=== PATIENT | female | born 1940 | race Caucasian/White ===

== ENCOUNTER → 2018-02-12 10:52 | Outpatient (CLI) | payer MEDICARE, SELFPAY ==
--- NOTE | 2018-03-05 11:22 | ZIOP_ITS ---
DATE OF DICTATION: March 05, [address]: 13 days, 3 hours - February 122017 Baseline rhythm sinus. Rare single PAC. Seven bursts of SVT, longest 14-beat duration, fastest 176 bpm Rare single PVC, rare couplet. No VT. No bradycardia or block. Eight triggered events all during sinus rhythm +/- single PAC, 75-98 bpm. Ten symptomatic episodes all during sinus rhythm +/- single PAC, 66-99 bpm. Symptoms of skipped irre gular beats, dizziness, fluttering, racing, anxious, very hungry, weak, sweating, all described. Average heart rate sinus 75 bpm, range 47-112 bpm.
== END ==
PROVIDERS: PCP Emergency Medicine; Visit Provider Emergency Medicine
DX: R00.2 Palpitations (principal)
CPT/HCPCS: 0296T; 93225

== ENCOUNTER → 2018-03-05 07:36 | Outpatient (CLI) | payer MEDICARE, SELFPAY | PROVIDERS: PCP Emergency Medicine; Visit Provider Internal Medicine Interventional Cardiology | DX: R00.2 Palpitations (principal); I47.1 Supraventricular tachycardia | CPT/HCPCS: 0298T ==

== ENCOUNTER 2018-05-24 10:03 | Outpatient (CLI) | payer MEDICARE, SELFPAY ==
[2018-05-24 11:27] LABS: HCT 38.2 % (36.0-46.0); HGB 12.4 g/dL (12.0-15.5); Mean Corp. HGB Concentration 32.5 g/dL (32.0-36.0); Mean Corpuscular Hemoglobin 29.5 pg (27.0-33.0); Mean Corpuscular Volume 90.7 fL (80-95); Platelet Count 258 x1000/uL (130-400); RBC 4.21 m/cumm (4.00-5.20); RBC Distribution Width 12.9 % (11.7-14.6); White Blood Cell Count 8.61 k/cumm (4.4-10.8)
[2018-05-24 12:31] LABS: ALT 27 U/L (12-78); AST 17 U/L (15-37); Albumin 3.5 g/dL (3.4-5.0); Alkaline Phosphatase 100 U/L (46-116); Anion Gap 5.7 mmol/L (3-11); BUN 15 mg/dL (7-18); Bilirubin, Total 0.4 mg/dL (0.2-1.0); CO2 31.3 mmol/L (21.0-32.0); CREATININE 0.89 mg/dL (0.55-1.02); Calcium 9.1 mg/dL (8.5-10.1); Chloride 106 mmol/L (98-107); Ferritin 146 ng/mL (8-388); Glucose 86 mg/dL (70-100); Potassium 4.5 mmol/L (3.5-5.1); Sodium 143 mmol/L (136-145); TSH 1.69 uIU/mL (0.358-3.74); Total Protein 6.8 g/dL (6.4-8.2)
[2018-05-25 13:01] LABS: Albumin 57.3 % (55.8-66.1); Total Protein 6.5 g/dl (6.3-8.2)
== END 2018-05-24 10:23 ==
PROVIDERS: PCP Emergency Medicine; Visit Provider Emergency Medicine
DX: I10 Essential (primary) hypertension (principal); F41.9 Anxiety disorder, unspecified; D12.6 Benign neoplasm of colon, unspecified; R53.83 Other fatigue; G62.9 Polyneuropathy, unspecified
CPT/HCPCS: 36415; 80053; 85027; 82728; 84165; 84443

== ENCOUNTER 2018-06-15 01:37 | Outpatient (CLI) | payer MEDICARE, SELFPAY ==
--- NOTE | 2018-06-15 08:57 | DI.MRI_ITS ---
SYMPTOMS/DIAGNOSIS: HEADACHE AND HEARING LOSS, R51 MRI OF THE BRAIN: Routine noncontrast examination. Comparison is 08/07/09. The ventricles and sulci are consistent with the patient's age. There are areas of T2 hyperintensity on the FLAIR and T2 images in the white matter, most consistent with small vessel ischemic disease. The diffusion weighted images show no evidence of an acute infarct. No intracranial hemorrhage is present. The ventricles are intact. The basilar cisterns are patent. There is again seen an empty sella. A normal flow void is seen in the [place]. There is a opacification of the mastoid air cells bilaterally. The remaining visualized paranasal sinuses show a mucus retention cyst or polyp in the left maxillary sinus. IMPRESSION: 1. Age-appropriate cerebral atrophy and small vessel ischemic disease. 2. Bilateral mastoiditis.
== END 2018-06-15 01:57 ==
PROVIDERS: PCP Emergency Medicine; Visit Provider Emergency Medicine
DX: R51 Headache (principal); H91.8X9 Other specified hearing loss, unspecified ear; G31.9 Degenerative disease of nervous system, unspecified; H70.93 Unspecified mastoiditis, bilateral
CPT/HCPCS: 70551

== ENCOUNTER 2018-06-25 02:39 | Outpatient (CLI) | payer MEDICARE, SELFPAY ==
--- NOTE | 2018-07-16 10:55 | ZIOP_ITS ---
ZIO PATCH MONITOR INTERPRETATION DATE OF DICTATION July 16, [address] 13 days, 3 hours, June 25-2017. INTERPRETATION Baseline rhythm sinus. Rare single PAC. SVT noted 12 times, fastest 154 beats per minute, longest 6 beat duration. Rare single PVC. No VT. No bradycardia/block. 5 triggered events occurring during sinus rhythm +/- single PAC 66-98 beats per minute. SYMPTOMS 6 symptomatic episodes. Weirdness, a feeling it kept up, felt I could faint, anxious, blurry vision, dizziness, lightheadedness, waves strange feeling all described during sinus rhythm +/- single PAC 66-95 beats per minute. Average heart rate sinus 72 beats per minute, range 47-104 beats per minute. Jonathon Doherty M.D. JAMIL/drake T - 07/16/2018
== END 2018-06-25 02:59 ==
PROVIDERS: PCP Emergency Medicine; Visit Provider Emergency Medicine
DX: R00.2 Palpitations (principal); I47.1 Supraventricular tachycardia; I49.1 Atrial premature depolarization
CPT/HCPCS: 93225

== ENCOUNTER 2018-07-16 10:21 | Outpatient (CLI) | payer MEDICARE, SELFPAY | END 2018-07-16 10:41 | PROVIDERS: PCP Emergency Medicine; Referring Provider Emergency Medicine; Visit Provider Internal Medicine Interventional Cardiology | DX: R00.2 Palpitations (principal); I47.1 Supraventricular tachycardia; I49.1 Atrial premature depolarization | CPT/HCPCS: 0298T ==

== ENCOUNTER 2018-08-30 14:52 | Outpatient (CLI) | payer MEDICARE, SELFPAY ==
[2018-08-30 15:38] LABS: Abs Immature Grans 0.01 k/cumm (0.0-0.09); Absolute Basophil Count 0.01 k/cumm (0.0-0.2); Absolute Eosinophil Count 0.04 k/cumm (0.0-0.7); Absolute Lymphocyte Count 2.44 k/cumm (1.2-3.4); Absolute Monocyte Count 0.47 k/cumm (0.11-0.7); Absolute Neutrophil Count 4.56 k/cumm (1.2-6.7); Basophils % 0.1; Eosinophils % 0.5; HCT 38.7 % (36.0-46.0); HGB 12.8 g/dL (12.0-15.5); Immature Grans % 0.1; Lymphocytes % 32.4; Mean Corp. HGB Concentration 33.1 g/dL (32.0-36.0); Mean Corpuscular Hemoglobin 29.4 pg (27.0-33.0); Mean Corpuscular Volume 88.8 fL (80-95); Mean Platelet Volume 10.6 fL (8.0-11.0); Monocytes % 6.2; Neutrophils % 60.7; Platelet Count 224 x1000/uL (130-400); RBC 4.36 m/cumm (4.00-5.20); RBC Distribution Width 13.3 % (11.7-14.6); White Blood Cell Count 7.53 k/cumm (4.4-10.8)
[2018-08-30 16:41] LABS: ESR 11 MM/HR (0-30)
[2018-08-30 17:09] LABS: ALT 25 U/L (12-78); AST 19 U/L (15-37); Albumin 3.8 g/dL (3.4-5.0); Alkaline Phosphatase 90 U/L (46-116); Anion Gap 7.8 mmol/L (3-11); BUN 16 mg/dL (7-18); Bilirubin, Total 0.5 mg/dL (0.2-1.0); CO2 30.2 mmol/L (21.0-32.0); CREATININE 0.87 mg/dL (0.55-1.02); Calcium 9.1 mg/dL (8.5-10.1); Chloride 106 mmol/L (98-107); Glucose 96 mg/dL (70-100); Potassium 4.2 mmol/L (3.5-5.1); Sodium 144 mmol/L (136-145); TSH 1.65 uIU/mL (0.358-3.74); Total Protein 7.1 g/dL (6.4-8.2)
[2018-08-31 13:53] LABS: Albumin 61.8 % (55.8-66.1); Total Protein 6.7 g/dl (6.3-8.2)
== END 2018-08-30 15:12 ==
PROVIDERS: PCP Emergency Medicine; Visit Provider Emergency Medicine
DX: R53.83 Other fatigue (principal); R07.1 Chest pain on breathing; E03.9 Hypothyroidism, unspecified
CPT/HCPCS: 36415; 80053; 85652; 84165; 84443; 85025

== ENCOUNTER → 2018-11-12 12:30 | Outpatient (BNVA) | payer MEDICARE, SELFPAY | PROVIDERS: PCP Emergency Medicine; Visit Provider Nurse Practitioner Adult Health | DX: H53.9 Unspecified visual disturbance (principal); R68.89 Other general symptoms and signs; I10 Essential (primary) hypertension | CPT/HCPCS: 99204; 99214 ==

== ENCOUNTER 2018-12-16 21:25 | Emergency (ER) | payer MEDICARE, SELFPAY ==
[2018-12-16 21:29] VITALS: BP 131/73; PULSE 72; RESP 18; TEMP 37.1; O2SAT 98
--- NOTE | 2018-12-16 21:44 | ED.GENADUL_ITS ---
Discharge Plan Disposition Patient Disposition: HOME Condition: Good Discharge Details Chief Complaint: GenMedical Clinical Impression: Excess ear wax Primary Care Provider: Jaylen Wakefield ED Provider: Abe Gibson Home Meds and New Rx's Prescriptions: No Action mirtazapine 15 mg tablet 7.5 mg PO QHS RF: 0 metoprolol succinate 25 mg tablet extended release 24 hr 25 mg PO DAILY Qty: 90 RF: 3 lorazepam 0.5 mg tablet 0.5 mg PO PRN RF: 0 gabapentin 300 mg capsule 600 mg PO DAILY RF: 0 calcium carb and citrate-vitD3 1 EACH tablet extended release 1 ea PO DAILY RF: 0 losartan 100 mg tablet 100 mg PO DAILY Qty: 90 RF: 3 amlodipine 5 mg tablet 5 mg PO DAILY Qty: 90 RF: 4 Discharge Instructions Instructions: Cerumen Impaction (ED) Additional Instructions: If you notice any worsening of your symptoms, or any new symptoms such as ear pain, changes and he vomiting, diarrhea, fever, chills, shortness of breath, sophie st pain, numbness, weakness, or fainting , please return immediately to the emergency department for reevaluation. Please follow up with your primary care provider as soon as possible for reassessment and reevaluation. As always, it was a pleasure participating in your medical care today. Referrals: Jaylen Wakefield, DO [Primary Care Provider] - Medical Decision Making This is a pleasant 78-year-old female who presents for evaluation of suspected foreign body or insect in the right ear. Roughly an hour ago she noted that she thought something felt funny in her right ear. They came for further evaluation. Exam demonstrates a small amount of wax which was easily removed, after this there was notable absence of any insect or foreign body, no evidence of a tick. After the wax was removed the patient felt much better. I have extensively reviewed the treatment plan and discharge instructions with the patient and their family. I have addressed all patient concerns at this time. The patient and family was made aware of what symptoms to monitor for that would warrant a return to the emergency department. Discussed the plan with the patient and family, they demonstrate verbal understanding and agreement with our assessment and plan at this time. HPI General Date/Time Provider Initiated Documentation: 12/16/18 21:31 . HPI Narrative: This is a pleasant 78-year-old female who presents for evaluation of suspected foreign body in right ear. She states that earlier today she thought that there was something crawling around in her ear, they thought it might be a tick. They were unable to see anything on their exam and so they came in for further evaluation. She denies any pain, drainage, or other complaints. No hearing changes. Related Data Home Medications Medication Instructions Recorded Confirmed calcium carb and citrate-vitD3 1 ea PO DAILY 12/10/14 09/20/18 losartan 100 mg tablet 100 mg PO DAILY #90 tab-cap 07/19/18 09/20/18 metoprolol succinate ER 25 mg 25 mg PO DAILY #90 tab 08/01/18 09/20/18 tablet,extended release 24 hr amlodipine 5 mg tablet 5 mg PO DAILY #90 tab-cap 09/11/18 09/20/18 gabapentin 300 mg capsule 600 mg PO DAILY cap 11/12/18 11/12/18 lorazepam 0.5 mg tablet 0.5 mg PO PRN tab 11/12/18 11/12/18 mirtazapine 15 mg tablet 7.5 mg PO QHS tab 11/12/18 11/12/18 Previous Rx's Medication Instructions Recorded losartan 100 mg tablet 100 mg PO DAILY #90 tab-cap 07/19/18 metoprolol succinate ER 25 mg 25 mg PO DAILY #90 tab 08/01/18 tablet,extended release 24 hr amlodipine 5 mg tablet 5 mg PO DAILY #90 tab-cap 09/11/18 Allergies Allergy/AdvReac Type Severity Reaction Status Date / Time sertraline AdvReac Intermediate anxiety Verified 11/12/18 12:48 General Stated Complaint: GenMedical ARIK: 4 Review of Systems Review of Systems All systems reviewed & are unremarkable except as noted in HPI and below PFSH Social History Smoking/Tobacco Use Status: Never Alcohol Intake: current Alcohol Intake frequency: 0-2 drinks per day Drug use: Never Household members: other Details: 2 current occupation: Retired teacher What type of physical activity do you participate in: none Do you feel safe in your relationship?: Yes Exam Narrative Exam Narrative: 1.Const: Well-nourished, Well-developed, appearing stated age 2.Eyes: PERRL, no conjunctival injection, and symmetrical lids. 3.ENT: Atraumatic external nose and ears. Moist MM. Neck: Symmetric, trachea midline, No thyromegaly. Left ear canal and tympanic membrane are normal. Right ear canal demonstrates a small amount of wax which was removed without difficulty, no evidence of otitis media, foreign body, or arthropod. 4.CVS: +S1/S2, No murmurs or gallops. Peripheral pulses 2+ and equal in all extremities. Brisk capillary refill in all extremities. 5.RESP: Unlabored respiratory effort. Clear to auscultation bilaterally. No wheezes rales or rhonchi 6.GI: Soft, Nontender/Nondistended, No hepatosplenomegaly. No guarding or rebound. 7.MSK: Normocephalic/Atraumatic, Extremities w/o deformity or ttp No cyanosis or clubbing, Normal movement of all extremities 8.Skin: Warm, Dry. No rashes or lesions. 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 Sensation grossly intact, no focal neurologic deficits. 10.Psych: (AAO) x3. Appropriate mood and affect Course Vital Signs Temperature 37.1 C 12/16/18 21:29 Pulse 72 12/16/18 21:29 Respiratory Rate 18 12/16/18 21:29 Blood Pressure 131/73 12/16/18 21:29 Pulse Oximetry 98 12/16/18 21:29 Temperature 37.1 C 12/16/18 21:29 Temperature Source Tympanic 12/16/18 21:29 Pulse 72 12/16/18 21:29 Respiratory Rate 18 12/16/18 21:29 Blood Pressure 131/73 12/16/18 21:29 Blood Pressure Position Sitting 12/16/18 21:29 Pulse Oximetry 98 12/16/18 21:29 Oxygen Delivery Method Room Air 12/16/18 21:29 Oxygen Flow Rate 0 12/16/18 21:29 Pain Level 0 12/16/18 21:29
[2018-12-16 21:54] VITALS: BP 131/73; PULSE 72; RESP 18; O2SAT 98
== END 2018-12-16 21:52 | disposition home or self-care (01) ==
PROVIDERS: Emergency Provider Student in an Organized Health Care Education/Training Program; PCP Emergency Medicine
DX: H61.891 Other specified disorders of right external ear (principal); I10 Essential (primary) hypertension
CPT/HCPCS: 99282

== ENCOUNTER 2019-06-22 10:44 | Emergency (ER) | payer MEDICARE, SELFPAY ==
[2019-06-22 10:48] VITALS: BP 142/90; PULSE 102; RESP 18; TEMP 36.7; O2SAT 98
--- NOTE | 2019-06-22 11:21 | W.ED.GENAD ---
Discharge Plan Disposition Patient Disposition: HOME Condition: Stable Discharge Details Chief Complaint: RashLesion Clinical Impression: Shingles Primary Care Provider: Jaylen Wakefield ED Provider: Leanne De La Rosa Home Meds and New Rx's Prescriptions: New valacyclovir 1 gram tablet 1,000 mg PO TID 7 Days Qty: 21 RF: 0 Continued mirtazapine 15 mg tablet 7.5 mg PO QHS RF: 0 metoprolol succinate 25 mg tablet extended release 24 hr 25 mg PO DAILY Qty: 90 RF: 3 desipramine 10 mg tablet 10 mg PO QHS RF: 0 lorazepam 0.5 mg tablet 0.5 mg PO PRN RF: 0 gabapentin 300 mg capsule 600 mg PO DAILY RF: 0 calcium carb and citrate-vitD3 1 EACH tablet extended release 1 ea PO DAILY RF: 0 losartan 100 mg tablet 100 mg PO DAILY Qty: 90 RF: 3 amlodipine 5 mg tablet 5 mg PO DAILY Qty: 90 RF: 4 Discharge Instructions Instructions: Shingles (ED) Additional Instructions: Take the antivirals until finished. Avoid contact with pediatric patients who are either unvaccinated or under 12 months of age. Call your primary care doctor on Monday morning to schedule a follow-up appointment for reevaluation. Return to the emergency department if you develop any worsening or new concerning symptoms. Discharge Data Discharge Physician: Leanne De La Rosa Medical Decision Making 78-year-old female presents with pressure-like tingling right-sided facial rash since yesterday. Symptoms have worsened since yesterday with progression of rash. No known fever or difficulty swallowing. There are scattered erythematous mildly tender papules and vesicles in clusters on right preauricular region, along mandible and right anterior chin. Appear consistent with shingles. No obvious otitis media. PERRLA. EOMI. No complaint of blurry vision or hearing loss. She does have a history of chronic right tinnitus but states this is slightly worse than baseline. We will treat with antivirals. She was advised that this is contagious. Patient advised to avoid contact with pediatric patients under 12 months of age or unvaccinated. She is advised that I most likely suspect this is shingles but to follow-up with her primary care doctor for reevaluation. Usual and customary return precautions given prior to discharge. HPI General Date/Time Provider Initiated Documentation: 06/22/19 10:50. Related Data Home Medications Medication Instructions Recorded Confirmed calcium carb and citrate-vitD3 1 ea PO DAILY 12/10/14 06/22/19 losartan 100 mg tablet 100 mg PO DAILY #90 tab-cap 07/19/18 06/22/19 metoprolol succinate 25 mg 25 mg PO DAILY #90 tab 08/01/18 06/22/19 tablet,extended release 24 hr amlodipine 5 mg tablet 5 mg PO DAILY #90 tab-cap 09/11/18 06/22/19 gabapentin 300 mg capsule 600 mg PO DAILY cap 11/12/18 06/22/19 lorazepam 0.5 mg tablet 0.5 mg PO PRN tab 11/12/18 04/10/19 mirtazapine 15 mg tablet 7.5 mg PO QHS tab 11/12/18 06/22/19 desipramine 10 mg tablet 10 mg PO QHS 06/11/19 06/22/19 valacyclovir 1,000 mg PO TID 7 Days #21 tab 06/22/19 Previous Rx's Medication Instructions Recorded losartan 100 mg tablet 100 mg PO DAILY #90 tab-cap 07/19/18 metoprolol succinate 25 mg 25 mg PO DAILY #90 tab 08/01/18 tablet,extended release 24 hr amlodipine 5 mg tablet 5 mg PO DAILY #90 tab-cap 09/11/18 valacyclovir 1,000 mg PO TID 7 Days #21 tab 06/22/19 Allergies Allergy/AdvReac Type Severity Reaction Status Date / Time sertraline AdvReac Intermediate anxiety Verified 06/22/19 10:52 General Stated Complaint: RashLesion ARIK: 4 Review of Systems All systems reviewed & are unremarkable except as noted in HPI and below Constitutional Constitutional: Reports as per HPI, Denies chills and Denies fever(s) Eyes Eyes: Denies blurry vision ENT Ears, Nose, Mouth, and Throat: Denies dizziness, Denies sore throat and Denies throat swelling Cardiovascular Cardiovascular: Denies chest pain and Denies dyspnea Respiratory Respiratory: Denies cough and Denies dyspnea Gastrointestinal Gastrointestinal: Denies abdominal pain, Denies diarrhea and Denies vomiting Genitourinary Genitourinary: Denies hematuria and Denies dysuria Musculoskeletal Musculoskeletal: Denies back pain and Denies numbness Integumentary/Breasts Skin/Breast: Reports lesions and Reports rash Neurologic Neurologic: Denies dizziness, Denies focal weakness and Denies numbness Allergic/Immunologic Allergic/Immunologic: Denies throat swelling [facility] Medical History Anxiety Diarrhea Endometrial cancer GERD (gastroesophageal reflux disease) Hx of colonic polyps Hyperlipidemia Hypertension Lightheaded (Acute) Migraine Osteopenia Palpitations Sciatica Spinal stenosis of lumbar region Tinnitus Surgical History Biopsy of breast Colonoscopy - IV Sedation 2007- Tubular adenoma 2012- normal EGD - IV Sedation (07/27/16) Hysterectomy, Laproscopic (~08/2013) for adenoca of uterus Family History Mother Essential hypertension Father Heart disease Brother Heart disease Grandfather No problems noted. Grandfather Heart disease Grandmother No problems noted. Grandmother No problems noted. Social History Smoking/Tobacco Use Status: Never Alcohol Intake: current Alcohol Intake frequency: 0-2 drinks per day Drug use: Never Household members: other Details: 2 current occupation: Retired teacher What type of physical activity do you participate in: none Do you feel safe at home: Yes Do you feel safe in your relationship?: Yes Exam Const General: cooperative, healthy appearing and no acute distress HENFL Head: normal to inspection Head images: 1. Scattered mildly tender, erythematous papules and vesicles in clusters noted right preauricular region and along right mandible and right anterior chin. No evidence of abscess or bleeding. Ears: hearing grossly normal bilaterally and other (Some tenderness with introduction of otoscope into right ear canal. ) General nose exam: external nose normal Mouth: other (1 small tiny pinpoint tender flesh-colored papule inner R lower lip) Throat: posterior oropharynx normal Eyes General: appearance normal, both eyes and all related structures Periorbital: periorbital findings normal Eyelids: eyelids normal Conjunctivae: conjunctivae normal Pupils: PERRL EOM: EOM intact bilaterally Neck Neck: normal visual inspection, full ROM, no lymphadenopathy, no meningeal signs, trachea midline and supple Resp Effort & Inspection: normal respiratory effort and able to speak in complete sentences Cardio Rate: regular rate Neuro General: alert, awake and oriented x3 Motor: muscle tone normal throughout Extrem General: normal to inspection and full ROM Psych Appearance: grossly normal Affect: normal affect Course Vital Signs Vital signs: Vital Signs Temperature 98.1 F 06/22/19 10:48 Pulse 102 H 06/22/19 10:48 Respiratory Rate 18 06/22/19 10:48 Blood Pressure 142/90 H 06/22/19 10:48 Pulse Oximetry 98 06/22/19 10:48 Temperature 98.1 F 06/22/19 10:48 Temperature Source Skin 06/22/19 10:48 Pulse 102 H 06/22/19 10:48 Respiratory Rate 18 06/22/19 10:48 Respiratory Effort 06/22/19 10:54 Blood Pressure 142/90 H 06/22/19 10:48 Blood Pressure Position Sitting 06/22/19 10:48 Pulse Oximetry 98 06/22/19 10:48 Oxygen Delivery Method Room Air 06/22/19 10:48 Oxygen Flow Rate 0 06/22/19 10:48 Pain Level 0 06/22/19 10:48
== END 2019-06-22 11:32 | disposition home or self-care (01) ==
PROVIDERS: Emergency Provider Physician Assistant; PCP Emergency Medicine
DX: B02.9 Zoster without complications (principal); I10 Essential (primary) hypertension
CPT/HCPCS: 99283

== ENCOUNTER 2020-02-10 12:27 | Outpatient (REF) | payer MEDICARE, SELFPAY ==
[2020-02-12 22:21] LABS: Metanephrines, U 63 mcg/24 h; Normetanephrine, U 142 mcg/24 h; Total Metanephrines, U 205 mcg/24 h; Urine Volume 1575 mL
[2020-02-13 11:04] LABS: Urine Volume 1575 mL
[2020-02-13 17:59] LABS: Urine Volume 1575 mL
== END 2020-02-10 12:47 ==
LOC: LBN 12:27
PROVIDERS: PCP Emergency Medicine; Visit Provider Psychiatry & Neurology Psychiatry
DX: F41.8 Other specified anxiety disorders (principal)
CPT/HCPCS: 81050; 82384; 83835; 84585

== ENCOUNTER 2020-05-28 15:58 | Emergency (ER) | payer MEDICARE, SELFPAY ==
[2020-05-28 16:06] VITALS: BP 133/83; PULSE 87; RESP 16; TEMP 36.7; O2SAT 98
--- NOTE | 2020-05-28 16:15 | DI.RAD_ITS ---
EXAM: XR CHEST 2V PA LATERAL CLINICAL HISTORY: sensation of fb esophagus TECHNIQUE: 2D digital imaging was performed. COMPARISON: CR CHEST 2 VIEWS PA,LAT from 09/06/2017 FINDINGS: MEDIASTINUM: There again seen calcified mediastinal lymph nodes. HEART: Normal. PULMONARY VASCULATURE: Normal. LUNGS: Clear. PLEURAL SPACE: No pleural effusion or pneumothorax. BONE:Within normal limits for the patient's age. OTHER FINDINGS:No radiopaque foreign body is seen in the region of the esophagus. IMPRESSION: No acute pulmonary findings. No radiopaque foreign body in the region of the esophagus. If further i maging is warranted, endoscopy should be considered. DATA REPOSITORY: RADIATION DOSE DELIVERED:
[2020-05-28] MEDS: Mylanta Suspension 30 ML CUP PO (16:31)
--- NOTE | 2020-05-28 16:34 | ED.GENADUL_ITS ---
Discharge Plan Disposition Patient Disposition: HOME Condition: Stable Discharge Details Clinical Impression: Foreign body sensation in throat Primary Care Provider: Jaylen Wakefield ED Provider: Jamarcus Gao Home Meds and New Rx's Prescriptions: New omeprazole 40 mg capsule,delayed release(DR/EC) 40 mg PO DAILY Qty: 30 RF: 0 Continued mirtazapine 15 mg tablet 7.5 mg PO QHS RF: 0 lorazepam 0.5 mg tablet 0.5 mg PO PRN RF: 0 Shingrix (PF) 50 mcg/0.5 mL suspension for reconstitution 0.5 ml IM ONCE Qty: 1 RF: 0 sertraline 25 mg tablet 12.5 mg PO DAILY RF: 0 gabapentin 300 mg capsule 600 mg PO BID Qty: 90 RF: 3 losartan 100 mg tablet 100 mg PO DAILY Qty: 90 RF: 3 metoprolol succinate 25 mg tablet extended release 24 hr 25 mg PO DAILY Qty: 90 RF: 3 amlodipine 5 mg tablet 5 mg PO DAILY Qty: 90 RF: 4 Discharge Instructions Instructions: Esophageal Foreign Body (ED) Additional Instructions: Please follow-up with general surgery for an upper endoscopy. Please contact your primary care physician to arrange follow-up. Return to the ER for any worsening or new concerning symptoms. Referrals: [facility] [Provider Group] Jaylen Wakefield DO [Primary Care Provider] - Radha Avila DO [OSTEOPATHIC DOCTOR] - Discharge Data Discharge Date/Time-TO BE ENTERED AT DEPARTURE: 05/28/20 17:52 Medical Decision Making [id number]??79-year-old female with history of GERD here after having a sensation of foreign body in her throat/chest while she was attempting to swallow a tuna fish. Symptoms were severe and lasted approximately 45 minutes. Now resolved. Patient did experience an odd sensation of bubbles in her chest during the episode. I will obtain a screening chest x-ray. Pepcid to be given for potential reflux. -- cxr interpreted by radiology - negative. Patient reassessed and remains asymptomatic. Plan to start PPI and have patient follow-up for likely endoscopy. Usual and customary discharge instructions reviewed with patient. HPI General Mode of arrival: ambulatory . Date/Time Provider Initiated Documentation: 05/28/20 16:15 . Limitations to Documentation: no limitations . Information obtained by: patient . HPI Narrative: 79-year-old female presents with chief complaint of sensation of foreign body in her throat. Patient notes symptoms started just prior to arrival about an hour ago when she was eating a tuna fish sandwich. She notes she felt as though a piece of food got lodged in her throat. She describes having a sensation of bubbles of air in her throat. She states she could not swallow. Discomfort was severe with no modifiers. She attempted to vomit and could not. She has no associated other chest discomfort or shortness of breath. Symptoms have now resolved just prior to arrival. She is now asymptomatic. Related Data Home Medications Medication Instructions Recorded Confirmed lorazepam 0.5 mg tablet 0.5 mg PO PRN tab 11/12/18 05/28/20 mirtazapine 15 mg tablet 7.5 mg PO QHS tab 11/12/18 05/28/20 varicella-zoster glycoE [id number] 0.5 ml IM ONCE #1 each 06/24/19 05/28/20 adj(PF) 50 mcg/0.5 mL IM susp, kit gabapentin 300 mg capsule 600 mg PO BID #90 cap 07/09/19 05/28/20 losartan 100 mg tablet 100 mg PO DAILY #90 tab-cap 07/30/19 05/28/20 metoprolol succinate 25 mg 25 mg PO DAILY #90 tab 07/30/19 05/28/20 tablet,extended release 24 hr sertraline 25 mg tablet 12.5 mg PO DAILY tab 12/06/19 05/28/20 amlodipine 5 mg tablet 5 mg PO DAILY #90 tab-cap 12/10/19 05/28/20 omeprazole 40 mg PO DAILY #30 cap 05/28/20 Previous Rx's Medication Instructions Recorded varicella-zoster glycoE [id number] 0.5 ml IM ONCE #1 each 06/24/19 adj(PF) 50 mcg/0.5 mL IM susp, kit gabapentin 300 mg capsule 600 mg PO BID #90 cap 07/09/19 losartan 100 mg tablet 100 mg PO DAILY #90 tab-cap 07/30/19 metoprolol succinate 25 mg 25 mg PO DAILY #90 tab 07/30/19 tablet,extended release 24 hr amlodipine 5 mg tablet 5 mg PO DAILY #90 tab-cap 12/10/19 omeprazole 40 mg PO DAILY #30 cap 05/28/20 Allergies Allergy/AdvReac Type Severity Reaction Status Date / Time sertraline AdvReac Intermediate anxiety Verified 05/28/20 16:10 General Stated Complaint: ThroatFB ARIK: 2 Review of Systems All systems reviewed & are unremarkable except as noted in HPI and below Constitutional Constitutional: Denies fever(s) Cardiovascular Cardiovascular: Denies chest pain Gastrointestinal Gastrointestinal: Reports as per HPI and Denies nausea PFSH Medical History (Updated 05/28/20 @ 16:39 by Jamarcus Gao MD) Anxiety Diarrhea Endometrial cancer GERD (gastroesophageal reflux disease) Hx of colonic polyps Hyperlipidemia Hypertension Lightheaded Migraine Osteopenia Palpitations Sciatica Spinal stenosis of lumbar region Tick bite Tinnitus Surgical History Biopsy of breast Colonoscopy - IV Sedation 2007- Tubular adenoma 2012- normal EGD - IV Sedation (07/27/16) Hysterectomy, Laproscopic (~08/2013) for adenoca of uterus Family History Mother Essential hypertension Father Heart disease Brother Heart disease Grandfather No problems noted. Grandfather Heart disease Grandmother No problems noted. Grandmother No problems noted. Social History Smoking/Tobacco Use Status: Never Smoking risk assessment performed?: Yes Alcohol Intake: current Alcohol Intake frequency: 0-2 drinks per day Drug use: Never Household members: other Details: 2 current occupation: Retired teacher What type of physical activity do you participate in: none Do you feel safe at home: Yes Do you feel safe in your relationship?: Yes Exam Const General: cooperative and no acute distress HENMT Mouth: moist mucous membranes Throat: posterior oropharynx normal Eyes Conjunctivae: normal conjunctivae Sclera: normal sclerae Neck Neck: trachea midline and supple Resp Auscultation: clear to auscultation bilaterally, no rales, no rhonchi and no wheezes Cardio Rate: regular rate and not tachycardic Rhythm: regular rhythm GI Palpation: soft, not firm, no guarding, no masses, not rigid and nontender Skin General skin exam: no rashes or lesions noted Neuro General: patient alert, patient awake and tone normal Extrem General: no calf tenderness and no edema Psych Appearance: grossly normal Mental Status: mental status grossly normal Course Vital Signs Vital signs: Vital Signs Temperature 36.7 C 05/28/20 16:06 Pulse 87 05/28/20 16:06 Respiratory Rate 16 05/28/20 16:06 Blood Pressure 133/83 05/28/20 16:06 Pulse Oximetry 98 05/28/20 16:06 Temperature 36.7 C 05/28/20 16:06 Temperature Source Skin 05/28/20 16:06 Pulse 87 05/28/20 16:06 Respiratory Rate 16 05/28/20 16:06 Respiratory Effort Non-Labored 05/28/20 16:18 Respiratory Pattern Normal 05/28/20 16:18 Blood Pressure 133/83 05/28/20 16:06 Blood Pressure Position Sitting 05/28/20 16:06 Pulse Oximetry 98 05/28/20 16:06 Oxygen Delivery Method Room Air 05/28/20 16:06 Oxygen Flow Rate 0 05/28/20 16:06 Pain Level 0 05/28/20 16:06
--- NOTE | 2020-05-28 17:07 | DI.VRAD_ITS ---
PROCEDURE INFORMATION: Exam: XR Chest, 2 Views Exam date and time: 05/28/2020 4:54 PM Age: 79 years old Clinical indication: Other: Sensation of fb in esophogus TECHNIQUE: Imaging protocol: XR of the chest Views: 2 views. COMPARISON: CR CHEST 2 VIEWS PA,LAT 09/06/2017 3:46 PM FINDINGS: Lungs: The lungs are clear. There is no pulmonary vascular congestion. Pleural space: There are no layering pleural effusions. Heart/Mediastinum: Heart size is near the upper limits of normal, as on prior study. No radiopaque foreign body in the region of the esophagus is identified. There appear to be calcified mediastinal lymph nodes, as on prior study, suggesting old granulomatous disease. Bones/joints: Unremarkable. IMPRESSION: No radiopaque foreign body in the region of esophagus identified. Further evaluation with endoscopy could be obtained. Dictated and Authenticated by: Ramón Harris MD. Ordering:ROSALINA Ricketts MD
[2020-05-28 17:50] VITALS: BP 129/77; PULSE 72; RESP 16; TEMP 36.7; O2SAT 98
== END 2020-05-28 17:52 | disposition home or self-care (01) ==
LOC: ER 17:09
PROVIDERS: Emergency Provider Student in an Organized Health Care Education/Training Program; PCP Emergency Medicine
DX: R09.89 Other specified symptoms and signs involving the circulatory and respiratory systems (principal); K21.9 Gastro-esophageal reflux disease without esophagitis; I10 Essential (primary) hypertension
CPT/HCPCS: 99283; 71046

== ENCOUNTER 2020-07-08 01:25 | Outpatient (CLI) | payer MEDICARE, SELFPAY ==
--- NOTE | 2020-07-08 07:00 | DI.MRI_ITS ---
EXAM: MR LUMBAR SPINE WO thank you CLINICAL HISTORY: Severe spinal stenosis and persistent left leg symPTOMS,SPONDYLOLISTHESIS,. TECHNIQUE: Multiplanar multisequence MRI was performed. COMPARISON: MR MRI - LUMBAR SPINE WO CONTRAST from 09/06/2013 FINDINGS: MR examination of the lumbosacral spine was performed according to the usual protocol. There are incidental multiple bilateral renal cysts. There is a bilateral L4 spondylolysis with moderate anterior spondylolisthesis of L4 on L5, estimated 20 percent of the vertebral width. No significant bony signal abnormality seen the lumbar region. The conus medullaris appears intact. From the T10-T11 level to the L3-4 level, there is no evidence of a disc herniation, central canal sp inal stenosis, or neural foraminal stenosis. At the L4-5 level, there is as noted above moderate anterolisthesis of L4 on L5. In combination with moderate disc bulge and prominent facet hypertrophy, this causes a severe central canal spinal steno sis and slight right-sided neural foraminal stenosis. There is tortuosity of nerve roots above this level noted, also consistent with severe central canal spinal stenosis. No focal disc herniation see n. There is been little interval change in appearance comparison with prior MR of 2013 regarding the fin dings at L4-5. At L5-S1, there is no evidence disc herniation, central canal spinal stenosis, or neural foraminal st enosis, there are moderate bilateral facet hypertrophic changes. IMPRESSION: Severe central canal spinal stenosis at L4-5, no gross interval change from prior MR exam of 2013. DATA REPOSITORY:
== END 2020-07-08 01:45 ==
PROVIDERS: PCP Emergency Medicine; Visit Provider Emergency Medicine
DX: M48.061 Spinal stenosis, lumbar region without neurogenic claudication; M43.16 Spondylolisthesis, lumbar region
CPT/HCPCS: 72148

== ENCOUNTER 2020-08-25 09:20 | Outpatient (CLI) | payer MEDICARE, SELFPAY ==
--- NOTE | 2020-08-25 06:00 | DI.RAD_ITS ---
EXAM: XR PAIN CLINIC LUMBAR SP 2V CLINICAL HISTORY: DX: Lumbar Radiculopathy TECHNIQUE: 2D and realtime digital imaging was performed. COMPARISON: No exams were available for comparison FINDINGS: C-arm fluoroscopy was utilized by Dr. Ledbetter during apparent epidural injection. Hard copy shows needl e projected in the midline posteriorly what appears to be the L5-S1 level. Fluoro time, 40.3 seconds. IMPRESSION: RADIATION DOSE DELIVERED: Total DLP
[2020-08-25 09:45] VITALS: BP 147/66; PULSE 77; RESP 17; TEMP 37.2; O2SAT 98
--- NOTE | 2020-08-25 10:21 | PDOC.PAIN_ITS ---
Pain Clinic Procedure Note Procedure Note Procedure Note: Date of service: 08/24/2020 Lumbar Epidural Steroid Injection Procedure Note COMMENTS: She was evaluated in our clinic on 08/10/20. She last had an LESI in [address] Enamorado who completed an interlaminar LESI at L5-S1. She did have better success with her [address] Pleitez, who entered the epidural space at L5-S1, but then ran a catheter to the L4-L5 interspace where her listhesis is. I discussed this with her at length and we decide to complete the procedure with a catheter similar to the way Dr. Pleitez did in 2013. DX: Lumbosacral radiculopathy GALLO DIALLO has been referred to the [facility] for lumbar epidural steroid injection. The patient was greeted by the nurse who verified patients name and . Patient was then taken to the fluoroscopy suite. The patient was interviewed and the medial record reviewed. There were no medical, pharmacologic, radiographic, or other structural contraindications to attempting fluoroscopically guided lumbar epidural steroid injection. Risks and expected side effects as well as potential benefits of the procedure were reviewed and voiced concerns expressed. The patient consent form was signed and witnessed. Standard patient time-out procedure was performed. The patient was placed in the prone position on the fluoroscopy table and automated blood pressure cuff and pulse oximeter applied. The skin entry point for entering/approaching the epidural space at L5-S1 and marked. Following thorough chlorhexadine preparation of the skin and draping and 1% lidocaine infiltration of the skin entry point and subcutaneous tissues, a 17 gauge Touhy needle was placed under fluoroscopic guidance and with loss of resistance technique into the epidural space. Needle tip placement and depth were aided and confirmed by fluoroscopy. There was no paresthesia or return of blood or CSF through the needle. 1/2 cc of Omnipaque 240 was injected with clear epidural spread confirmed with fluoroscopy. Next, I placed a 19 Kinyarwanda epidural catheter through the Touhy needle and advanced this to the L4-L5 interspace on the left. This was confirmed with another 1/2 cc of Omnipaque 240. Next 80mg depomedrol was injected and then flushed with 1 cc of 1% Lidocaine. There was not any unusual discomfort expressed by GALLO DIALLO. Patient's vital signs were stable throughout the procedure and were as recorded in nursing records. Follow up plans and appointments were discussed with patient. Post procedure instruction was given as documented in nursing records and having met discharge criteria and was discharged from the [facility]. COMMENTS: If this procedure is helpful, it can be completed up to 3 times per 12 months. Shaggy Ledbetter DO, MPH Pain Management
[2020-08-25 10:26] VITALS: BP 139/83; PULSE 85; RESP 19; O2SAT 99
[2020-08-25] MEDS: Omnipaque 240 MG/ML 50 ML BTL IJ (10:27)
[2020-08-25] MEDS: methylPREDNISolone ACETATE 80 MG/ML VIAL (10:28)
== END 2020-08-25 09:21 | disposition home or self-care (01) ==
LOC: PC 09:21
PROVIDERS: PCP Emergency Medicine; Visit Provider Preventive Medicine Occupational Medicine
DX: M54.17 Radiculopathy, lumbosacral region (principal)
CPT/HCPCS: 62323; 72100; J1040; Q9967

== ENCOUNTER 2020-10-30 10:53 | Outpatient (CLI) | payer MEDICARE, SELFPAY ==
[2020-10-31 01:18] LABS: COVID-19 RT-PCR UVMMC Result Negative (Negative)
== END 2020-10-30 10:54 | disposition home or self-care (01) ==
LOC: LBO 10:59
PROVIDERS: PCP Emergency Medicine; Visit Provider Emergency Medicine
DX: Z20.822 Contact with and (suspected) exposure to COVID-19 (principal)
CPT/HCPCS: U0003; U0005

== ENCOUNTER 2020-11-24 21:43 | Outpatient (REF) | payer MEDICARE, SELFPAY ==
[2020-11-24 20:55] LABS: Calculated LDL 142 mg/dL (<100); Cholesterol 233 mg/dL (<200); HDL Cholesterol 71 mg/dL (40-60); Triglyceride 102 mg/dL (<150)
== END 2020-11-24 21:44 | disposition home or self-care (01) ==
LOC: LBN 21:43
PROVIDERS: PCP Emergency Medicine; Visit Provider Emergency Medicine
DX: I10 Essential (primary) hypertension (principal)
CPT/HCPCS: 80061

== ENCOUNTER 2020-12-24 11:16 | Outpatient (CLI) | payer MEDICARE, SELFPAY ==
--- NOTE | 2020-12-24 06:00 | DI.RAD_ITS ---
Exam(s) XR PAIN CLINIC LUMBAR SP 2V EXAM: XR PAIN CLINIC LUMBAR SP 2V CLINICAL HISTORY: Dx: Lumbar Radiculopathy TECHNIQUE: 2D and realtime digital imaging was performed. Radiologist not present. CONTRAST MATERIAL: None. COMPARISON: No exams were available for comparison FINDINGS: Fluoroscopy was provided for pain management therapy performed by Khloe. Submitted image(s) reveal placement of L5 level needle for epidural steroid injection. Please refer to procedure report or details. Cumulative dose: Karissar=6.06 mGy IMPRESSION: RADIATION DOSE DELIVERED:
[2020-12-24 11:42] VITALS: BP 140/85; PULSE 75; RESP 16; TEMP 36.1; O2SAT 98
[2020-12-24 12:41] VITALS: BP 127/73; PULSE 92; RESP 18; O2SAT 99
[2020-12-24] MEDS: Omnipaque 240 MG/ML 50 ML BTL IJ (12:44)
[2020-12-24] MEDS: methylPREDNISolone ACETATE 80 MG/ML VIAL IJ (12:44)
--- NOTE | 2020-12-24 12:57 | PDOC.PAIN ---
Pain Clinic Procedure Note Procedure Note Procedure Note: Date of service: December 24, 2020 Lumbar EPIDURAL STEROID WITH CATHETER INJECTION PROCEDURE NOTE COMMENTS: She has done the best with a lumbar epidural steroid injection using a catheter. The entry point is the L5-S1 interspace and the catheter is guided up to L4-L5. Pre-procedure pain VAS was 7/10. DX: Lumbosacral radiculopathy. Staci Bragg has been referred to the [facility] for lumbar epidural steroid injection. Patient was greeted by the nurse who verified patients name and . Patient was then taken to the fluoroscopy suite. Patient was interviewed and the medical record reviewed. There were no medical, pharmacologic, radiographic, or other structural contraindications to attempting fluoroscopically guided lumbar epidural steroid injection. Risks and expected side effects as well as potential benefits of the procedure were reviewed and voiced concerns addressed. The patient consent form was signed and witnessed. Standard time-out procedure was performed. Patient was placed in the prone position on the fluoroscopy table and automated blood pressure cuff and pulse oximeter applied. The skin entry point for entering/approaching the epidural space at L5-S1 and marked. Following thorough chlorhexadine preparation of the skin and draping and 1% lidocaine infiltration of the skin entry point and subcutaneous tissues, a 17 gauge Touhy needle was placed under fluoroscopic guidance and with loss of resistance technique into the epidural space. Needle tip placement and depth were aided and confirmed by fluoroscopy. There was no paresthesia or return of blood or CSF through the needle. An Arrow cath was thread to the L4-L5 and 1 cc's of Omnipaque 240 was injected with clear epidural spread confirmed with fluoroscopy. 80mg depomedrol was injected. There was not any unusual discomfort expressed. Vital signs were stable throughout the procedure and were as recorded in nursing records. Follow up plans and appointments were discussed.Post procedure instruction was given as documented in nursing records and having met discharge criteria and was discharged from the [facility]. COMMENTS: Post-procedure pain VAS was 3/10. Shaggy Ledbetter DO, MPH Pain Management
== END 2020-12-24 11:17 | disposition home or self-care (01) ==
PROVIDERS: PCP Emergency Medicine; Visit Provider Preventive Medicine Occupational Medicine
DX: M54.17 Radiculopathy, lumbosacral region (principal)
CPT/HCPCS: 62323; 72100; J1040; Q9967

== ENCOUNTER 2021-05-21 00:43 | Outpatient (CLI) | payer MEDICARE, SELFPAY ==
--- NOTE | 2021-05-21 | DI.MRI_ITS ---
Exam(s) MR LUMBAR SPINE WO EXAM: MR LUMBAR SPINE WO CLINICAL HISTORY: PRE SURGERY,L 4-5 SPONDYLOLISTHESIS,STENOSIS,M48.062,M43.16. TECHNIQUE: Multiplanar multisequence MRI was performed. COMPARISON: MR MR LUMBAR SPINE WO from 07/08/2020 FINDINGS: MR examination lumbosacral spine was performed according to the usual protocol. Examination is clayton red with prior lumbar spine MRI of July 08, 2020. Prior examination showed moderate anterior spo ndylolisthesis of L4 on L5, presumably secondary to bilateral spondylolysis of L4, with no gross inte rval change in appearance comparison prior examination. There is severe central canal spinal stenosi s and right-sided neural foraminal stenosis at this level. The degree of central canal spinal stenos is appears unchanged from the prior examination. Note is again made of tortuosity of nerve roots abo ve the severe stenosis. No gross disc herniation identified at this level or elsewhere in the lumbar region. Mild disc bulge noted at L2-3. Conus medullaris appears intact. No focal bony signal abnormality identified. Multiple bilateral renal cysts noted. IMPRESSION: Stable appearance of severe central canal spinal stenosis at L4-5 as described above, no change from prior examination of July 08, 2020. DATA REPOSITORY:
== END 2021-05-21 01:03 ==
PROVIDERS: PCP Emergency Medicine; Visit Provider Neurological Surgery
DX: M48.062 Spinal stenosis, lumbar region with neurogenic claudication (principal); M43.16 Spondylolisthesis, lumbar region
CPT/HCPCS: 72148

== ENCOUNTER 2021-08-05 10:44 | Outpatient (CLI) | payer MEDICARE, SELFPAY ==
--- NOTE | 2021-08-05 10:30 | RT.EKG_ITS ---
APPROVED REPORT Exam: Resting ECG Reason for Exam: pre op Patient Location: O HR:75 bpm ECG Measurements Heart Rate 75 AXIS [place] 157 P 6 QRSd 88 QRS -18 QT 396 T 16 QTc 444 Conclusion Sinus rhythm...normal P axis, V-rate 60- [address]-T abnormalities
== END 2021-08-05 10:45 | disposition home or self-care (01) ==
LOC: DI.CM 10:46
PROVIDERS: PCP Nurse Practitioner Family; Visit Provider Nurse Practitioner Family
DX: Z01.818 Encounter for other preprocedural examination (principal)
CPT/HCPCS: 93010

== ENCOUNTER 2021-08-10 02:05 | Outpatient (CLI) | payer MEDICARE, SELFPAY ==
[2021-08-10 11:31] LABS: HCT 39.5 % (36.0-46.0); HGB 13.1 g/dL (11.2-15.7); MCH 29.8 pg (27.0-33.0); MCHC 33.2 % (32.0-36.0); MCV 89.8 fL (80-95); MPV 10.5 fL (8.0-11.0); Platelet Count 231 10^3/uL (130-400); RDW 12.8 % (11.7-14.6); RDW-SD 42.1 fL; WBC 11.12 10^3/uL (4.4-10.8)
[2021-08-10 11:51] LABS: ALT 30 U/L (14-59); AST 22 U/L (15-37); Albumin 3.8 g/dL (3.4-5.0); Alkaline Phosphatase 102 U/L (46-116); Anion Gap 11.1 mmol/L (3-11); BUN 13 mg/dL (7-18); Bilirubin, Total 0.4 mg/dL (0.2-1.0); CO2 24.9 mmol/L (21.0-32.0); CREATININE 0.9 mg/dL (0.55-1.02); Calcium 9.1 mg/dL (8.5-10.1); Chloride 106 mmol/L (98-107); Glucose 96 mg/dL (74-106); Potassium 4.4 mmol/L (3.5-5.1); Sodium 142 mmol/L (136-145); Total Protein 7.5 g/dL (6.4-8.2)
== END 2021-08-10 02:06 | disposition home or self-care (01) ==
LOC: LBO 02:05
PROVIDERS: PCP Nurse Practitioner Family; Visit Provider Nurse Practitioner Family
DX: Z01.818 Encounter for other preprocedural examination (principal)
CPT/HCPCS: 36415; 80053; 85027

== ENCOUNTER 2021-08-13 01:27 | Outpatient (CLI) | payer MEDICARE, SELFPAY ==
[2021-08-13 11:17] LABS: Source Nasal/Nares
[2021-08-13 13:51] LABS: COVID-19 PCR Negative (Negative)
== END 2021-08-13 01:28 | disposition home or self-care (01) ==
LOC: LBO 01:28
PROVIDERS: PCP Nurse Practitioner Family; Visit Provider Nurse Practitioner Family
DX: Z01.818 Encounter for other preprocedural examination (principal); Z20.822 Contact with and (suspected) exposure to COVID-19
CPT/HCPCS: 87635

== ENCOUNTER 2021-08-21 09:35 | Emergency (ER) | payer MEDICARE, SELFPAY ==
[2021-08-21 09:40] VITALS: BP 155/78; PULSE 92; RESP 22; TEMP 36.8; O2SAT 95
--- NOTE | 2021-08-21 09:55 | W.ED.GENAD ---
Discharge Plan Disposition Patient Disposition: HOME Condition: Stable Discharge Details Clinical Impression: Weakness, Dysuria, Nausea Primary Care Provider: Sara Pandey ED Provider: Nishant Contreras Home Meds and New Rx's Prescriptions: New cephalexin 500 mg capsule 500 mg PO BID Qty: 14 0RF ondansetron 4 mg tablet,disintegrating 4 mg PO TID PRN3 Days Qty: 9 0RF Continued lorazepam 0.5 mg tablet 0.5 mg PO PRN 0RF sertraline 25 mg tablet 50 mg PO DAILY 0RF Label Comments: Pt reports she takes 50mg daily.HE mirtazapine 15 mg tablet 7.5 mg PO QHS 0RF Label Comments: RX. BY DR. LAZARO PLUNKETT gabapentin 300 mg capsule 600 mg PO BID Qty: 90 3RF amlodipine 5 mg tablet 5 mg PO DAILY Qty: 90 4RF losartan 100 mg tablet 100 mg PO DAILY Qty: 90 3RF metoprolol succinate 25 mg tablet extended release 24 hr 25 mg PO DAILY Qty: 90 3RF hydrocodone-acetaminophen 5-325 mg tablet 1 tab PO Q6H 0RF Label Comments: TAKE 1 TO 2 TABLETS BY MOUTH EVERY 6 HOURS NEEDED FOR PAIN polyethylene glycol 3350 [Miralax] 17 gram/dose Powder 17 g PO PRN PRN0RF Discharge Instructions Instructions: Acute Nausea and Vomiting (ED), Dysuria (ED), Weakness (ED) Additional Instructions: Keflex and Zofran as directed. Plenty of fluids to avoid dehydration. Please watch for new or worsening symptoms and return to the ER for any concerns. I spoke with your surgical team, they would like you to follow-up with your primary care provider either on Monday or Monday, I have placed you on the care management list to help expedite this process. Please follow-up with your surgical team as already directed on Monday. Medical Decision Making 81-year-old female, with lumbar fusion at [facility] last Monday, presents to the ER reporting fever, night sweats, urinary frequency and dysuria for the past couple of days. Has not taken any antipyretics today and is afebrile. Clinically she appears well, nontoxic. She has no evidence of infection at her surgical incision. She is neurologically intact and there are no signs of cauda equina. Plan is to obtain IV access, obtain routine screening laboratory values, urinalysis, and a send out Covid swab. Laboratory values reveal mild nonspecific leukocytosis of 11.72, mild anemia no surprise status post surgery, she denies any black tarry stools or bright red blood in her stools. Electrolytes unremarkable. GFR normal. Urinalysis reveals trace leukoesterase, 3-5 white cells and rare bacteria. Urine culture pending. Covid test pending as well. She denies any chest pain, shortness of breath or cough. Lungs are clear to auscultation, O2 sat is 95% on room air. I see no clear indication for emergent chest x-ray Given her age, recent surgery, presenting symptoms of general weakness, dysuria, frequency, fever, I will speak with her surgical team. I was able to speak with Adelina Laura NP. She felt as though initiating antibiotic therapy would be reasonable for her dysuria and urine findings. She recommends attempting to set up outpatient follow-up for the patient in the next few days and her surgical team will follow the patient as an outpatient as already scheduled. I relayed this to the patient. She has been able to ambulate slowly but steadily throughout her ER visit and transfer from the [facility] to the [facility] multiple times. Again she is neurologically intact. Plan is to provide first dose of Keflex now and send her home with a prescription. She now reports mild nausea, will also provide first dose of Zofran and a prescription for Zofran. Strict discharge and return precautions were provided. It turns out she is actually set up for a telemedicine appointment with her surgical team on Monday. I placed her on the care management list to help expedite outpatient primary care follow-up on Monday or Monday. This documentation was generated using [employer], [employer] system, please disregard any oddities of phrase or misspellings. Medical Records Medical records reviewed: Yes I reviewed the patient's medical records. Lab Data Lab results reviewed: Yes I reviewed the patient's lab results. Labs: 08/21/21 10:00 Urine - Reflex from Ua Urine Culture - Pending Laboratory Tests Range/Units 08/21/21 08/21/21 08/21/21 10:00 10:30 10:30 WBC (4.4-10.8) 10^3/uL 11.72 H RBC (3.93-5.22) 10^6/uL 3.57 L Hgb (11.2-15.7) g/dL 10.3 L Hct (36.0-46.0) % 32.1 L MCV (80-95) fL 89.9 MCH (27.0-33.0) pg 28.9 MCHC (32.0-36.0) % 32.1 RDW (11.7-14.6) % 12.5 Plt Count (130-400) 10^3/uL 249 MPV (8.0-11.0) fL 10.0 Immature Gran % 0.5 Neutrophils % 84.0 Lymphocytes % 9.2 Monocytes % 5.4 Eosinophils % 0.6 Basophils % 0.3 Nucleated RBC % % 0 Absolute Neutrophils (1.2-6.7) 10^3/uL 9.84 H Absolute Lymphocytes (1.2-3.4) 10^3/uL 1.08 L Absolute Monocytes (0.1-0.8) 10^3/uL 0.63 Absolute Eosinophils (0.0-0.7) 10^3/uL 0.07 Absolute Basophils (0.0-0.2) 10^3/uL 0.04 Sodium (136-145) mmol/L 136 Potassium (3.5-5.1) mmol/L 3.9 Chloride (98-107) mmol/L 102 Carbon Dioxide (21.0-32.0) mmol/L 26.6 Anion Gap (3-11) mmol/L 7.4 BUN (7-18) mg/dL 11 Creatinine (0.55-1.02) mg/dL 0.9 Estimated GFR/1.73 m2 (mL/min/1.73m2) >= 60.00 Glucose (74-106) mg/dL 127 H Calcium (8.5-10.1) mg/dL 8.9 Total Bilirubin (0.2-1.0) mg/dL 0.7 AST (15-37) U/L 95 H ALT (14-59) U/L 129 H Alkaline Phosphatase (46-116) U/L 145 H Total Protein (6.4-8.2) g/dL 6.8 Albumin (3.4-5.0) g/dL 3.1 L Urine Color (Yellow) Yellow Urine Clarity (Clear) Clear Urine pH (5-8) 5.5 Ur Specific M[place] (1.005-1.025) 1.025 Urine Protein (Negative) mg/dL Negative Urine Ketones (Negative) mg/dL Negative Urine Blood (Negative) Negative Urine Nitrite (Negative) Negative Urine Bilirubin (Negative) Negative Urine Urobilinogen (Up TO 0.2) EU/dL 0.2 Ur Leukocyte Esterase (Negative) Trace H Urine RBC (0-2) HPF 0-2 Urine WBC (0-5) HPF 3-5 Ur Epithelial Cells (Negative) HPF Rare Urine Crystals (Negative) HPF Negative Urine Bacteria (Negative) HPF Rare Urine Casts (Negative) LPF Negative Urine Mucus (Negative) Trace Ur Culture Indicated? Yes Urine Glucose (Negative) mg/dL Negative HPI General Date/Time Provider Initiated Documentation: 08/21/21 09:36. Limitations to Documentation: no limitations. Information obtained by: patient. HPI Narrative: This is an 81-year-old female, past medical history that includes anxiety, GERD, hyperlipidemia, hypertension, migraines, lumbar spinal fusion last Monday at [facility], presents to the ER for evaluation of generally not feeling well, generalized weakness, night sweats for the past few nights, she reports fever today at 100.5, mild dysuria and frequency. She contacted her surgical team at [facility] today, sent photos of her surgical incision, they felt as though the incision looks well, recommended coming to the ER for evaluation of her febrile illness. Adelina Laura NP, personally called the ER to give report. Concern of potential UTI and recommend evaluation and urinalysis. Patient has not taken any antipyretics today. She reports that she was provided a narcotic medication after her surgery but has not needed them in over 24 hours, is taking stool softener, and had a bowel movement this morning. She denies recent illness, headache, chills, neck pain, chest pain, shortness of breath, abdominal pain, nausea, vomiting, skin rash. Patient reports that the surgery went very well, denies any radiation of back discomfort into her legs, numbness, tingling, focal weakness Related Data Home Medications Medication Instructions Recorded Confirmed lorazepam 0.5 mg tablet 0.5 mg PO PRN tab 11/12/18 08/21/21 gabapentin 300 mg capsule 600 mg PO BID #90 cap 07/09/19 08/21/21 sertraline 25 mg tablet 50 mg PO DAILY tab 11/24/20 08/21/21 mirtazapine 15 mg tablet 7.5 mg PO QHS tab 01/22/21 08/21/21 amlodipine 5 mg tablet 5 mg PO DAILY #90 tab-cap 03/10/21 08/21/21 losartan 100 mg tablet 100 mg PO DAILY #90 tab-cap 07/17/21 08/21/21 metoprolol succinate 25 mg 25 mg PO DAILY #90 tab 07/17/21 08/21/21 tablet,extended release 24 hr cephalexin 500 mg capsule 500 mg PO BID #14 cap 08/21/21 hydrocodone 5 mg-acetaminophen 325 1 tab PO Q6H 08/21/21 08/21/21 mg tablet ondansetron 4 mg disintegrating 4 mg PO TID PRN 3 Days #9 tab 08/21/21 tablet polyethylene glycol 3350 17 17 g PO PRN PRN 08/21/21 08/21/21 gram/dose oral powder (Miralax) Previous Rx's Medication Instructions Recorded gabapentin 300 mg capsule 600 mg PO BID #90 cap 07/09/19 amlodipine 5 mg tablet 5 mg PO DAILY #90 tab-cap 03/10/21 losartan 100 mg tablet 100 mg PO DAILY #90 tab-cap 07/17/21 metoprolol succinate 25 mg 25 mg PO DAILY #90 tab 07/17/21 tablet,extended release 24 hr cephalexin 500 mg capsule 500 mg PO BID #14 cap 08/21/21 ondansetron 4 mg disintegrating 4 mg PO TID PRN 3 Days #9 tab 08/21/21 tablet Allergies Allergy/AdvReac Type Severity Reaction Status Date / Time sertraline AdvReac Intermediate anxiety Verified 08/21/21 10:06 General ARIK: 2 Review of Systems Constitutional Constitutional: Denies fatigue, Denies fever(s), Reports headache(s) and Reports weakness ENT Ears, Nose, Mouth, and Throat: Reports headache(s) and Denies neck pain Cardiovascular Cardiovascular: Denies chest pain and Denies dyspnea Respiratory Respiratory: Denies cough and Denies dyspnea Gastrointestinal Gastrointestinal: Denies abdominal pain, Denies nausea and Denies vomiting Genitourinary Genitourinary: Reports dysuria and Reports urinary urgency Musculoskeletal Musculoskeletal: Reports back pain (Better than before my surgery), Denies neck pain, Denies numbness and Denies tingling Integumentary/Breasts Skin/Breast: Denies rash Neurologic Neurologic: Reports headache(s), Denies numbness, Denies tingling and Reports weakness Comments: generalized Endocrine Endocrine: Denies fatigue Hematologic/Lymphatic Hematologic/Lymphatic: Denies easy bleeding and Denies easy bruising PFSH All Active Problems Weakness (Acute) Dysuria (Acute) Nausea (Acute) Shoulder pain (Acute) Left leg weakness (Acute) Spondylisthesis (Acute) Spinal stenosis of lumbar region (Acute) Impacted cerumen, right ear (Acute) Tick bite (Acute) Conductive hearing loss, external ear (Acute) Other infective otitis externa, right ear (Acute) Lightheaded (Acute) Abnormal mammography (Acute 02/08/10) Status post breast biopsy (Acute) Status post laparoscopic hysterectomy (Acute) Uterine cancer (Acute) 2013 [facility] [place]. [facility] [place] Fatigue (Acute) Tinnitus (Acute) Spinal stenosis of lumbar region (Acute 10/02/13) Polyp of colon, adenomatous (Acute) T.A. Peripheral polyneuropathy (Acute 12/06/17) Palpitations (Acute) neg stress echo 04/22 Osteopenia determined by x-ray (Acute) Night sweats (Acute 06/01/15) Migraine (Acute) Hyperlipidemia (Acute 03/25/13) GERD (gastroesophageal reflux disease) (Acute) EGD 07/26. Distal esophagitis, gastritis, HH Essential hypertension (Acute 05/30/13) Anxiety (Acute) Severe persistent Medical History Anxiety Diarrhea Endometrial cancer GERD (gastroesophageal reflux disease) Hx of colonic polyps Hyperlipidemia Hypertension Migraine Osteopenia Palpitations Spinal stenosis of lumbar region Tinnitus Surgical History Biopsy of breast Colonoscopy - IV Sedation 2007- Tubular adenoma 2012- normal EGD - IV Sedation (07/27/16) Hysterectomy, Laproscopic (~08/2013) for adenoca of uterus Family History Mother Essential hypertension Father Heart disease Brother Heart disease Grandfather No problems noted. Grandfather Heart disease Grandmother No problems noted. Grandmother No problems noted. Social History Smoking/Tobacco Use Status: Never Smoking risk assessment performed?: Yes Alcohol Intake: current Alcohol Intake frequency: 0-2 drinks per day Drug use: Never Household members: other Details: 2 Housing: house Number of Children: 3 current occupation: Retired teacher What type of physical activity do you participate in: none Special ernie needs: No Do you feel safe at home: Yes Do you feel safe in your relationship?: Yes Exam Const General: cooperative, healthy appearing, comfortable and no acute distress Orientation: alert, awake and oriented x3 HENMT Head: normal to inspection, normocephalic and atraumatic Face and sinus: normal facial exam Mouth: moist mucous membranes Eyes Conjunctivae: conjunctivae normal Neck Neck: normal visual inspection, full ROM, no meningeal signs, trachea midline, supple and nontender Resp Effort & Inspection: normal respiratory effort and able to speak in complete sentences Auscultation: clear to auscultation bilaterally Cardio Rate: regular rate Rhythm: regular rhythm GI Palpation: soft, not firm, no guarding, no pulsatile masses and nontender Auscultation: normal bowel sounds Back/Spine/Pelvis Back: No back tenderness Other: Well appearing surgical incision. No drainage, erythema, warmth Skin General skin exam: no rashes or lesions noted Neuro General: patient alert, patient awake, patient oriented x3, moves all extremities and no focal motor deficits Cognition: normal cognition Speech: speech normal Gait: normal gait Motor: muscle tone normal throughout and strength 5/5 throughout Sensory Exam: no sensory deficits noted Extrem General: normal to inspection, full ROM, capillary refill normal, no pedal edema and no calf tenderness Psych Appearance: grossly normal Mental Status: mental status grossly normal
[2021-08-21 10:01] VITALS: BP 155/78; PULSE 89; PULSE 90; RESP 19; O2SAT 95
[2021-08-21 10:16] VITALS: BP 141/69; PULSE 83; RESP 24; O2SAT 92
[2021-08-21 10:18] LABS: Bilirubin Negative (Negative); Blood Negative (Negative); Clarity Clear (Clear); Glucose Negative (Negative); Ketones Negative (Negative); Leukocyte Esterase Trace (Negative); Nitrite Negative (Negative); Specific Gravity 1.025 (1.005-1.025); Urobilinogen 0.2 EU/dL (Up TO 0.2); pH 5.5 (5-8)
[2021-08-21 10:24] LABS: RBC 0-2 HPF (0-2)
[2021-08-21 10:25] LABS: Bacteria Rare HPF (Negative); C & S Indicated? Yes; Casts Negative LPF (Negative); Crystals Negative HPF (Negative); Epithelial Cells Rare HPF (Negative); Mucus Trace (Negative)
[2021-08-21 10:31] VITALS: BP 151/73; PULSE 87; RESP 14; O2SAT 95
[2021-08-21 10:40] LABS: Abs Immature Grans 0.06 10^3/uL (0.0-0.06); Absolute Eosinophil Count 0.07 10^3/uL (0.0-0.7); Absolute Lymphocyte Count 1.08 10^3/uL (1.2-3.4); Absolute Monocyte Count 0.63 10^3/uL (0.1-0.8); Basophils % 0.3; Eosinophils % 0.6; HCT 32.1 % (36.0-46.0); HGB 10.3 g/dL (11.2-15.7); Immature Grans % 0.5; Lymphocytes % 9.2; MCH 28.9 pg (27.0-33.0); MCHC 32.1 % (32.0-36.0); MCV 89.9 fL (80-95); Monocytes % 5.4; Nucleated RBC 0 %; Platelet Count 249 10^3/uL (130-400); RBC 3.57 10^6/uL (3.93-5.22); RDW 12.5 % (11.7-14.6); RDW-SD 41.4 fL; WBC 11.72 10^3/uL (4.4-10.8)
[2021-08-21 10:42] LABS: Absolute Basophil Count 0.04 10^3/uL (0.0-0.2); Absolute Neutrophil Count 9.84 10^3/uL (1.2-6.7)
[2021-08-21 10:52] LABS: ALT 129 U/L (14-59); AST 95 U/L (15-37); Albumin 3.1 g/dL (3.4-5.0); Alkaline Phosphatase 145 U/L (46-116); Anion Gap 7.4 mmol/L (3-11); BUN 11 mg/dL (7-18); Bilirubin, Total 0.7 mg/dL (0.2-1.0); CO2 26.6 mmol/L (21.0-32.0); CREATININE 0.9 mg/dL (0.55-1.02); Calcium 8.9 mg/dL (8.5-10.1); Chloride 102 mmol/L (98-107); Glucose 127 mg/dL (74-106); Potassium 3.9 mmol/L (3.5-5.1); Sodium 136 mmol/L (136-145); Total Protein 6.8 g/dL (6.4-8.2)
--- NOTE | 2021-08-21 11:25 | NUR.NOTE ---
patient is able to get off the stretcher and use the toilet . She is also able to get back into bed
--- NOTE | 2021-08-21 11:46 | NUR.NOTE ---
Faxed the referral to [facility] for a follow up from the ER. The patient was seen by Nishant Contreras for a fever after having a lumbar fusion in [place], [place]. Patient was referred to the ER by HANS Laura [phone] from [place], [place] for the fever following surgery.
[2021-08-21] MEDS: Cephalexin 500 MG CAP PO (11:58)
[2021-08-21] MEDS: Ondansetron O.D.T. 4 MG TABEF (12:01)
[2021-08-21 12:36] VITALS: BP 156/81; PULSE 93; RESP 18; TEMP 35.9; O2SAT 96
--- NOTE | 2021-08-21 12:36 | NUR.NOTE ---
rx's called in to [facility] Nursing Note:
[2021-08-22 11:25] LABS: COVID-19 RT-PCR UVMMC Result Negative (Negative)
== END 2021-08-21 12:53 | disposition home or self-care (01) ==
PROVIDERS: Emergency Provider Physician Assistant; PCP Family Medicine
DX: R53.1 Weakness (principal); R30.0 Dysuria; Z20.822 Contact with and (suspected) exposure to COVID-19; R11.0 Nausea; R50.9 Fever, unspecified; Z98.890 Other specified postprocedural states
CPT/HCPCS: 36415; 80053; 99283; U0003; U0005; 81003; 81015; 85025; 87086

== ENCOUNTER 2021-08-31 04:02 | Outpatient (CLI) | payer MEDICARE, SELFPAY ==
[2021-08-31 12:54] LABS: ESR 12 mm/hr (0-30)
[2021-08-31 14:51] LABS: Bilirubin Negative (Negative); Blood Negative (Negative); Clarity Clear (Clear); Glucose Negative (Negative); Ketones Negative (Negative); Leukocyte Esterase Negative (Negative); Nitrite Negative (Negative); Specific Gravity 1.025 (1.005-1.025); Urobilinogen 0.2 EU/dL (Up TO 0.2); pH 5.5 (5-8)
== END 2021-08-31 04:03 | disposition home or self-care (01) ==
PROVIDERS: PCP Family Medicine; Visit Provider Family Medicine
DX: R30.0 Dysuria (principal); M25.511 Pain in right shoulder; M75.41 Impingement syndrome of right shoulder; M75.42 Impingement syndrome of left shoulder; M25.512 Pain in left shoulder
CPT/HCPCS: 36415; 85652; 81003

== ENCOUNTER 2021-09-14 01:59 | Outpatient (CLI) | payer MEDICARE, SELFPAY ==
--- NOTE | 2021-09-14 11:12 | DI.RAD_ITS ---
Exam(s) XR LUMBAR SPINE 1V ONLY EXAM: XR LUMBAR SPINE 1V ONLY CLINICAL HISTORY: SPINAL STENOSIS M48.062 SPONDYLOLISTHESIS M43.16. TECHNIQUE: 2D digital imaging was performed. COMPARISON: CR LUMBAR SPINE COMPLETE from 04/13/2011 FINDINGS: There has been interval fusion surgery. There are now posterior rods with bilateral intrapedicular s crews at L4-5 levels and in inter vertebral disc space device at L4-5 level. There is mild anterolis thesis L4 upon L5 noted, less than previous. No fractures evident. Limbus L3 vertebra again noted. No evidence of hardware fracture. Relationship of the intra pedicular screws relative to the superio r endplates of L4 and L5 appear satisfactory. IMPRESSION: DATA REPOSITORY: RADIATION DOSE DELIVERED:
== END 2021-09-14 02:19 ==
PROVIDERS: PCP Family Medicine; Visit Provider Physician Assistant Medical
DX: M43.16 Spondylolisthesis, lumbar region (principal); M48.062 Spinal stenosis, lumbar region with neurogenic claudication; Z98.1 Arthrodesis status
CPT/HCPCS: 72020

== ENCOUNTER 2021-09-28 03:03 | Outpatient (CLI) | payer MEDICARE, SELFPAY ==
[2021-09-28 12:17] LABS: ESR 17 mm/hr (0-30)
[2021-09-28 13:09] LABS: C-Reactive Protein 1.25 mg/dL (0.0-0.3)
[2021-09-29 11:26] LABS: Lyme Ab w Rflx to Lyme Confirm Negative (Negative)
== END 2021-09-28 03:04 | disposition home or self-care (01) ==
LOC: LBO 03:03
PROVIDERS: PCP Family Medicine; Visit Provider Emergency Medicine
DX: M25.511 Pain in right shoulder (principal); M25.512 Pain in left shoulder; M25.50 Pain in unspecified joint
CPT/HCPCS: 36415; 85652; 86140; 86618

== ENCOUNTER 2021-10-01 21:40 | Outpatient (CLI) | payer MEDICARE, SELFPAY ==
--- NOTE | 2021-10-01 10:47 | DI.RAD_ITS ---
Exam(s) XR CHEST 2V PA LATERAL EXAM: XR CHEST 2V PA LATERAL CLINICAL HISTORY: chest and back pain, R07.9, MYALGIA-M79.10, POLYNEUROPATHY-G62.9 TECHNIQUE: 2D digital imaging was performed of the chest. Two images were obtained. PA and lateral views were obtained. COMPARISON: CT CHEST ABD PELVIS WITH CONTRAST from 06/09/2015 CR,XR XR CHEST 2V PA LATERAL from 05/28/2020 FINDINGS: MEDIASTINUM: There again seen calcified right paratracheal and right hilar lymph nodes. HEART: Normal. PULMONARY VASCULATURE: Normal. LUNGS: Clear. PLEURAL SPACE: No pleural effusion or pneumothorax. BONE:Within normal limits for the patient's age. OTHER FINDINGS:Normal. IMPRESSION: No acute pulmonary findings. DATA REPOSITORY: RADIATION DOSE DELIVERED:
== END 2021-10-01 22:00 ==
PROVIDERS: PCP Family Medicine; Visit Provider Emergency Medicine
DX: G62.9 Polyneuropathy, unspecified (principal); M25.519 Pain in unspecified shoulder; M79.10 Myalgia, unspecified site
CPT/HCPCS: 71046; 85025

== ENCOUNTER 2021-10-05 03:15 | Outpatient (CLI) | payer MEDICARE, SELFPAY ==
[2021-10-05 14:16] LABS: Abs Immature Grans 0.09 10^3/uL (0.0-0.06); Absolute Monocyte Count 1.39 10^3/uL (0.1-0.8); Basophils % 0.2; Eosinophils % 0.4; HCT 37.4 % (36.0-46.0); HGB 11.9 g/dL (11.2-15.7); Immature Grans % 0.6; Lymphocytes % 31.2; MCH 29.1 pg (27.0-33.0); MCHC 31.8 % (32.0-36.0); MCV 91.4 fL (80-95); MPV 10.3 fL (8.0-11.0); Monocytes % 8.5; Neutrophils % 59.1; Nucleated RBC 0 %; Platelet Count 296 10^3/uL (130-400); RBC 4.09 10^6/uL (3.93-5.22); RDW-SD 44.3 fL
[2021-10-05 14:22] LABS: Absolute Basophil Count 0.03 10^3/uL (0.0-0.2); Absolute Eosinophil Count 0.07 10^3/uL (0.0-0.7); Absolute Lymphocyte Count 5.09 10^3/uL (1.2-3.4); Absolute Neutrophil Count 9.63 10^3/uL (1.2-6.7)
[2021-10-05 14:43] LABS: Diff Comment Diff Reviewed; RBC Morphology Normal
[2021-10-05 15:11] LABS: ALT 25 U/L (14-59); AST 14 U/L (15-37); Albumin 3.8 g/dL (3.4-5.0); Alkaline Phosphatase 114 U/L (46-116); Anion Gap 5.3 mmol/L (3-11); BUN 20 mg/dL (7-18); Bilirubin, Total 0.4 mg/dL (0.2-1.0); C-Reactive Protein 0.21 mg/dL (0.0-0.3); CO2 30.7 mmol/L (21.0-32.0); Calcium 9.1 mg/dL (8.5-10.1); Chloride 105 mmol/L (98-107); Creatine Kinase 83 U/L (26-192); Estimated GFR 53.21 (mL/min/1.73m2); Glucose 81 mg/dL (74-106); Potassium 4.2 mmol/L (3.5-5.1); Sodium 141 mmol/L (136-145); Total Protein 7.2 g/dL (6.4-8.2)
== END 2021-10-05 03:16 | disposition home or self-care (01) ==
LOC: LBO 03:15
PROVIDERS: PCP Family Medicine; Visit Provider Emergency Medicine
DX: G62.9 Polyneuropathy, unspecified (principal); M25.519 Pain in unspecified shoulder; M79.10 Myalgia, unspecified site; I10 Essential (primary) hypertension
CPT/HCPCS: 36415; 80053; 82550; 85025; 86140

== ENCOUNTER → 2021-11-17 00:21 | Outpatient (CLI) | payer MEDICARE, SELFPAY ==
--- NOTE | 2021-11-17 | DI.RAD_ITS ---
Exam(s) XR LUMBAR SPINE 1V ONLY EXAM: XR LUMBAR SPINE 1V ONLY CLINICAL HISTORY: SPINAL STENOSIS WITH NEUROGENIC CLAUDICATION,M48.062,SPONDYLOLISTHESIS,. TECHNIQUE: 2D digital imaging was performed. Lateral view only. COMPARISON: CR XR LUMBAR SPINE 1V ONLY from 09/14/2021 FINDINGS: Posterior fusion hardware is noted at L4-5. Disc spacer is seen. There has been no change in hardwa re alignment. No spondylolisthesis. Mild narrowing of the L3-4 and L5-S1 disc spaces. No compressi on fractures. Calcified abdominal aorta which is normal in diameter. IMPRESSION: Stable appearance of fusion hardware at L4-5. No compression fractures. DATA REPOSITORY: RADIATION DOSE DELIVERED:
== END ==
PROVIDERS: PCP Family Medicine; Visit Provider Neurological Surgery
DX: M48.062 Spinal stenosis, lumbar region with neurogenic claudication (principal); M51.37 Other intervertebral disc degeneration, lumbosacral region; Z98.1 Arthrodesis status; M43.16 Spondylolisthesis, lumbar region
CPT/HCPCS: 72020

== ENCOUNTER 2022-02-16 09:49 | Outpatient (CLI) | payer MEDICARE, SELFPAY ==
[2022-02-16 12:23] LABS: Abs Immature Grans 0.06 10^3/uL (0.0-0.06); Absolute Eosinophil Count 0.13 10^3/uL (0.0-0.7); Absolute Monocyte Count 0.89 10^3/uL (0.1-0.8); Basophils % 0.3; Eosinophils % 1.1; HCT 38.6 % (36.0-46.0); HGB 12.5 g/dL (11.2-15.7); Immature Grans % 0.5; Lymphocytes % 23.5; MCH 29.4 pg (27.0-33.0); MCHC 32.4 % (32.0-36.0); MCV 91 fL (80-95); Monocytes % 7.7; Neutrophils % 66.9; Platelet Count 217 10^3/uL (130-400); RBC 4.25 10^6/uL (3.93-5.22); RDW 13.4 % (11.7-14.6); RDW-SD 44.7 fL; WBC 11.51 10^3/uL (4.4-10.8)
[2022-02-16 12:28] LABS: Absolute Basophil Count 0.03 10^3/uL (0.0-0.2)
[2022-02-16 12:43] LABS: ALT 25 U/L (14-59); Albumin 3.4 g/dL (3.4-5.0); Alkaline Phosphatase 84 U/L (46-116); Anion Gap 8.5 mmol/L (3-11); BUN 17 mg/dL (7-18); Bilirubin, Total 0.4 mg/dL (0.2-1.0); CO2 28.5 mmol/L (21.0-32.0); CREATININE 0.9 mg/dL (0.55-1.02); Calcium 8.8 mg/dL (8.5-10.1); Chloride 107 mmol/L (98-107); Glucose 90 mg/dL (74-106); Potassium 4.5 mmol/L (3.5-5.1); Sodium 144 mmol/L (136-145); Total Protein 6.7 g/dL (6.4-8.2)
[2022-02-16 12:51] LABS: AST 20 U/L (15-37)
== END 2022-02-16 09:50 | disposition home or self-care (01) ==
LOC: LOS 09:49
PROVIDERS: PCP Family Medicine; Visit Provider Family Medicine
DX: I10 Essential (primary) hypertension (principal); R53.83 Other fatigue; D72.829 Elevated white blood cell count, unspecified; M79.18 Myalgia, other site
CPT/HCPCS: 36415; 80053; 84443; 85025

== ENCOUNTER → 2022-05-25 02:17 | Outpatient (CLI) | payer MEDICARE, SELFPAY ==
--- NOTE | 2022-05-25 07:15 | DI.US_ITS ---
Exam(s) US CAROTID EXAM: US CAROTID CLINICAL HISTORY: tinnitus, head fullness,r42. TECHNIQUE: Ultrasound carotids performed using grayscale, color-flow, and spectral Doppler imaging. COMPARISON: No exams were available for comparison FINDINGS: RIGHT CAROTID ARTERY: Plaque: Minimal. Velocity elevation: None. LEFT CAROTID ARTERY: Plaque: Minimal. Velocity elevation: None. VERTEBRAL ARTERIES: Antegrade flow. Measurements: R Bulb: 42.5cm/s PS / 13.3cm/s ED R CCA: 56.5cm/s PS / 17.1cm/s ED R ECA: 71.6cm/s PS / 10.5cm/s ED R ICA Prox: 64.1cm/s PS / 9.6cm/s ED R ICA Mid: 41.5cm/s PS / 12.4cm/s ED R ICA Distal: 82.5cm/s PS /24.1cm/s ED R Vert: 41.8cm/s PS / 11.1cm/s ED R SVR: 1.5 R DVR: 1.4 L Bulb: 56.8cm/s PS / 14.1cm/s ED L CCA: PS / 18cm/s ED L ECA: 54.4cm/s PS / 18.3cm/s ED L ICA Prox: 57.8cm/s PS / 8.9cm/s ED L ICA Mid: 66.9cm/s PS / 7.6cm/s ED L ICA Distal: 67.2cm/s PS / 13.1cm/s ED L Vert: 73.7cm/s PS / 15.7cm/s ED L SVR: 1 L DVR: 0.7 IMPRESSION: Minimal plaque at left common carotid bulb. No evidence for hemodynamically significant carotid sten osis. Criteria for Carotid Stenosis: Normal: ICA PSV <125 cm/s no plaque or intimal thickening is visible. <50% stenosis: ICA PSV <125 cm/s and plaque or intimal thickening is visible. 50-69% stenosis: ICA PSV is 125-250 cm/s and plaque is visible. >70% stenosis to near occlusion: ICA PSV >250 cm/s with visible plaque and luminal narrowing. DATA REPOSITORY:
== END ==
PROVIDERS: PCP Family Medicine; Visit Provider Family Medicine
DX: R42 Dizziness and giddiness
CPT/HCPCS: 93880

== ENCOUNTER 2022-07-20 03:10 | Outpatient (CLI) | payer MEDICARE, SELFPAY ==
[2022-07-20 16:22] LABS: Vitamin B12 231 pg/mL (193-986)
[2022-07-20 17:02] LABS: Vitamin D 25 Total 30.3 ng/mL (30-100)
== END 2022-07-20 03:11 | disposition home or self-care (01) ==
LOC: LBO 03:10
PROVIDERS: PCP Family Medicine; Visit Provider Family Medicine
DX: G62.9 Polyneuropathy, unspecified (principal); M85.80 Other specified disorders of bone density and structure, unspecified site
CPT/HCPCS: 36415; 82306; 82607

== ENCOUNTER 2022-11-17 13:50 | Outpatient (CLI) | payer MEDICARE, SELFPAY ==
[2022-11-17 13:40] LABS: Abs Immature Grans 0.06 10^3/uL (0.0-0.06); Absolute Basophil Count 0.02 10^3/uL (0.0-0.2); Absolute Eosinophil Count 0.01 10^3/uL (0.0-0.7); Absolute Lymphocyte Count 1.04 10^3/uL (1.2-3.4); Absolute Monocyte Count 0.68 10^3/uL (0.1-0.8); Absolute Neutrophil Count 5.25 10^3/uL (1.2-6.7); Basophils % 0.3; Eosinophils % 0.1; HCT 35.5 % (36.0-46.0); HGB 12.2 g/dL (11.2-15.7); Immature Grans % 0.8; Lymphocytes % 14.7; MCHC 34.4 % (32.0-36.0); MCV 87 fL (80-95); MPV 9.6 fL (8.0-11.0); Monocytes % 9.6; Neutrophils % 74.5; Platelet Count 186 10^3/uL (130-400); RBC 4.07 10^6/uL (3.93-5.22); RDW 13.2 % (11.7-14.6); RDW-SD 42.4 fL; WBC 7.06 10^3/uL (4.4-10.8)
[2022-11-17 14:24] LABS: ALT 28 U/L (14-59); AST 22 U/L (15-37); Albumin 3.4 g/dL (3.4-5.0); Alkaline Phosphatase 96 U/L (46-116); Anion Gap 10.7 mmol/L (3-11); BUN 16 mg/dL (7-18); Bilirubin, Total 0.4 mg/dL (0.2-1.0); CO2 25.3 mmol/L (21.0-32.0); Calcium 8.4 mg/dL (8.5-10.1); Chloride 103 mmol/L (98-107); Estimated GFR 56.25 (mL/min/1.73m2); Glucose 111 mg/dL (74-106); Potassium 3.7 mmol/L (3.5-5.1); Sodium 139 mmol/L (136-145); Total Protein 6.9 g/dL (6.4-8.2)
[2022-11-18 11:21] LABS: Lyme Ab w Rflx to Lyme Confirm Negative (Negative)
[2022-11-20 18:56] LABS: B. miyamotoi PCR Negative (Negative); Babesia divergens/MO-1 Negative (Negative); Babesia duncani Negative (Negative); Babesia microti Negative (Negative); Ehrlichia chaffeensis Negative (Negative); Ehrlichia ewingii/canis Negative (Negative); Ehrlichia muris eauclairensis Negative (Negative)
[2022-11-20 20:24] LABS: Anaplasma phagocytophilum Positive (Negative)
== END 2022-11-17 13:51 | disposition home or self-care (01) ==
LOC: LBO 14:16
PROVIDERS: PCP Family Medicine; Visit Provider Physician Assistant
DX: R51.9 Headache, unspecified (principal); R50.9 Fever, unspecified
CPT/HCPCS: 36415; 80053; 87798; 85025; 86618

== ENCOUNTER 2022-11-17 20:43 | Outpatient (REF) | payer MEDICARE, SELFPAY ==
[2022-11-17 21:15] LABS: Bilirubin Negative (Negative); Blood Trace-intact (Negative); Clarity Clear (Clear); Glucose Negative (Negative); Ketones Negative (Negative); Leukocyte Esterase Negative (Negative); Nitrite Negative (Negative); Urobilinogen 0.2 mg/dL (Up to 0.2)
[2022-11-17 21:19] LABS: Bacteria Negative HPF (Negative); C & S Indicated? No; Casts Negative LPF (Negative); Crystals Negative HPF (Negative); Epithelial Cells Negative HPF (Negative); Mucus Negative (Negative); RBC 0-2 HPF (0-2); WBC Negative HPF (0-5)
== END 2022-11-17 20:44 | disposition home or self-care (01) ==
LOC: LBN 20:43
PROVIDERS: PCP Family Medicine; Visit Provider Physician Assistant
DX: N39.0 Urinary tract infection, site not specified (principal); R50.9 Fever, unspecified
CPT/HCPCS: 81003; 81015

== ENCOUNTER 2022-11-23 01:48 | Outpatient (CLI) | payer MEDICARE, SELFPAY ==
--- NOTE | 2022-11-23 07:15 | DI.MRI_ITS ---
Exam(s) MR LUMBAR SPINE WO EXAM: MR LUMBAR SPINE WO CLINICAL HISTORY: S/P LUMBAR SPINAL ARTHRODESIS, Z98.1, ANNUAL FOLLOW UP. TECHNIQUE: Multiplanar multisequence MRI of the Lumbar spine was performed. COMPARISON: MR MR LUMBAR SPINE WO from 05/21/2021 CR XR LUMBAR SPINE 1V ONLY from 11/17/2021 FINDINGS: Bones: The last intervertebral disc space is designated the L5/S1 level for the numbering purpose of this examination. The vertebral body heights are well maintained. The marrow signal characteristics are unremarkable. Cord: The conus tip ends at the T12 level. It is of normal size and signal intensity. T12-L1: No disc herniations or bulges are present. No central spinal canal or neural foraminal stenos is. L1-2: No disc herniations or bulges are present. No central spinal canal or neural foraminal stenosis . L2-3: Minimal disc bulging. Mild ligamentous hypertrophy. Slight central canal stenosis. Mild bila teral neural foraminal narrowing. L3-4: Mild disc bulging. Facet degenerative changes and ligamentous hypertrophy combining to produce moderate central canal stenosis. Moderate left neural foraminal narrowing. The findings appear to have worsened when compared with the pre previous exam, particularly the ligamentous hypertrophy. L4-5: Disc spacer. Posterior fusion hardware creating significant artifact. No gross evidence of ce ntral canal stenosis or neural foraminal narrowing. Slight spondylolisthesis. L5-S1: No disc herniations or bulges are present. No central spinal canal or neural foraminal stenosi s. The visualized SI joints and sacrum are well maintained. Soft tissues: Multiple bilateral renal cysts noted. Postsurgical changes in the soft tissues of the posterior lower lumbar region. IMPRESSION: Status post posterior fusion and disc spacer at L4-5. No visible neural foraminal narrowing or centr al canal stenosis. Worsening of degenerative changes at L3-4 causing moderate central canal stenosis and moderate left n eural foraminal narrowing. DATA REPOSITORY:
== END 2022-11-23 02:08 ==
PROVIDERS: PCP Family Medicine; Visit Provider Family Medicine
DX: Z98.1 Arthrodesis status (principal); Z01.818 Encounter for other preprocedural examination; M48.061 Spinal stenosis, lumbar region without neurogenic claudication
CPT/HCPCS: 72148

== ENCOUNTER 2022-12-06 02:28 | Outpatient (CLI) | payer MEDICARE, SELFPAY ==
[2022-12-06 13:04] LABS: CREATININE 0.9 mg/dL (0.55-1.02); Estimated GFR 63.83 (mL/min/1.73m2)
[2022-12-06] MEDS: Normal Saline Flush 10 ML SYR IVP (13:20)
[2022-12-06] MEDS: Gadoterate meglumine 20 ML VIAL 13 ML IVP (13:20)
--- NOTE | 2022-12-06 13:45 | DI.MRI_ITS ---
Exam(s) MR BRAIN WO/W EXAM: MR BRAIN WO/W CLINICAL HISTORY: gait disorder, urinary incontinence,bilat tinnitus,n39.42,r26.89,h93.13 TECHNIQUE: Multiplanar multisequence MRI of the brain was performed. Both noninfused and contrast i nfused sequences were performed. IV Contrast injected was 13 cc Dotarem. COMPARISON: CR XR CHEST 2V PA LATERAL from 10/01/2021 MR MR LUMBAR SPINE WO from 11/23/2022 FINDINGS: CEREBRAL PARENCHYMA: No evidence of intracranial hemorrhage, mass effect nor shift of midline structu re. No extraaxial fluid collections. Ventricles are not enlarged nor shifted. There is no significant focal signal abnormality in the cerebellar hemispheres nor within the eva, a nd midbrain. There is a lacunar infarct in the right thalamus, without acute signal.. There are multiple foci of FLAIR bright signal abnormality in the Annie in supra ventricular white mat ter, not exhibiting hemorrhage nor surrounding edema nor focal enhancement following contrast injecti on. Also no restricted diffusion. DWI: No areas of restricted diffusion to suggest acute ischemic event. SWI: No microhemorrhages evident. There are no ring enhancing lesions in the brain. There is no abnormal meningeal enhancement. PITUITARY GLAND: There is empty sella syndrome. The pituitary gland is confined to the floor of the sella. There is no erosion of the dorsum sella nor of the basiocciput. FLOW VOIDS: The expected flow void are noted. No evidence of obvious aneurysm nor obvious vascular ma lformation. PARANASAL SINUSES: The visualized paranasal sinuses appear unremarkable. ORBITS: No obvious abnormal findings. IMPRESSION: 1. There is abundant bilateral periventricular white matter signal abnormality consistent with chroni c small vessel disease. No evidence of the acute infarcts. 2. No abnormal enhancing intracranial findings. There are no ring enhancing lesions in the brain and there is no abnormal meningeal enhancement. 3. Empty sella syndrome incidentally noted. The pituitary gland is confined to the floor of the madeline [place]. DATA REPOSITORY:
== END 2022-12-06 02:48 ==
LOC: DI 02:29
PROVIDERS: PCP Family Medicine; Visit Provider Family Medicine
DX: N39.42 Incontinence without sensory awareness (principal); H93.13 Tinnitus, bilateral; R26.89 Other abnormalities of gait and mobility; I67.89 Other cerebrovascular disease; E23.6 Other disorders of pituitary gland
CPT/HCPCS: 70553; 82565

== ENCOUNTER 2022-12-16 07:00 | Day surgery (SDC) | payer MEDICARE, SELFPAY ==
--- NOTE | 2022-12-16 06:18 | W.ANESPRE ---
General Info Date of Service Date Performed: 12/16/22 Height: 5 ft 4 in Weight: 63.503 kg Body Mass Index (BMI): 24.0 Surgical Procedure: Operation Date: 12/16/22 08:40 Proposed Procedure Side Surgeon p Cataract Extraction with IOL Implant Right Petar Piper MD Meds Allergies and Home Medications Allergies Allergy/AdvReac Type Severity Reaction Status Date / Time No Known Allergies Allergy Verified 12/16/22 07:11 Home Medication Medication Instructions Recorded sertraline 50 mg tablet 50 mg PO DAILY 09/03/21 gabapentin 300 mg capsule 300 mg PO DAILY 01/12/22 amlodipine 5 mg tablet 5 mg PO DAILY #90 tab-caps 06/08/22 losartan 100 mg tablet 100 mg PO DAILY #90 tab-caps 07/06/22 mirtazapine 15 mg tablet 15 mg PO QHS 10/14/22 prednisone 1 mg tablet 1 mg PO DAILY #18 tabs 11/11/22 Current Visit Medications: Current Medications Generic Name Dose Route Start Last Admin Trade Name Freq PRN Reason Stop Dose Admin Acetaminophen 1,000 mg 12/16/22 06:00 Acetaminophen 500 Mg Tab PO 01/15/23 05:59 Q4H PRN PRN Balanced Salt Solution 500 ml 12/16/22 06:00 Balanced Salt Soln.-Plus 500 Ml Bag OP 01/15/23 05:59 DIRECTED MAG Miscellaneous Medication 0 ml 12/16/22 06:00 Prednisolone 1%, Moxifloxacin 0.5%, Nepafenac 0.1% 5ml Btl OD 01/15/23 05:59 DIRECTED MAG Miscellaneous Medication 0 ml 12/16/22 06:00 Tropicam./Phenyleph. (1/2.5%) 5 Ml Btl OD 01/15/23 05:59 DIRECTED MAG Tetracaine HCl 0 ml 12/16/22 06:00 Tetracaine 0.5% 4 Ml Btl OD 01/15/23 05:59 DIRECTED MAG PFSH Active Problems Active Problems: Problem Status Onset Code Cortical age-related cataract, right eye H25.011 Nuclear age-related cataract, right eye H25.11 Anxiety 2013 F41.9 Essential hypertension 05/30/13 I10 GERD (gastroesophageal reflux disease) K21.9 Hyperlipidemia 03/25/13 E78.5 Osteopenia determined by x-ray M85.80 Peripheral polyneuropathy 12/06/17 G62.9 Spinal stenosis of lumbar region M48.061 Polymyalgia rheumatica M35.3 Essential tremor G25.0 Urinary incontinence without sensory awareness N39.42 Abdominal bloating R14.0 Sensorineural hearing loss (SNHL) of both ears H90.3 Tinnitus, bilateral H93.13 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 Medical History Medical History History of endometrial cancer (~2013) Hx of colonic polyps Migraine Osteopenia Palpitations neg stress echo 04/22 Spinal stenosis of lumbar region Spondylisthesis Tinnitus Surgical History Surgical History Status post breast biopsy Status post laparoscopic hysterectomy Status post lumbar spinal arthrodesis (~08/2021) L4-5 Tobacco Smoking/Tobacco Use Status: Never Alcohol Alcohol Intake: current Alcohol intake frequency: 0-2 drinks per day Substance Use Substance use: Never Vital Signs and Lab Results Vital Signs Most Recent Vital Signs in EMR: Temp Pulse Resp BP Pulse Ox 36.4 C L 83 18 163/82 H 96 12/16/22 07:21 12/16/22 07:21 12/16/22 07:21 12/16/22 07:21 12/16/22 07:21 Lab Results Blood Type / Crossmatch: No Data to Display Complete Blood Count: White Blood Count 7.06 10^3/uL (4.4-10.8) 11/17/22 13:30 Red Blood Count 4.07 10^6/uL (3.93-5.22) 11/17/22 13:30 Hemoglobin 12.2 g/dL (11.2-15.7) 11/17/22 13:30 Hematocrit 35.5 % (36.0-46.0) L 11/17/22 13:30 Platelet Count 186 10^3/uL (130-400) 11/17/22 13:30 Complete Metabolic Panel: Sodium 139 mmol/L (136-145) 11/17/22 13:30 Potassium 3.7 mmol/L (3.5-5.1) 11/17/22 13:30 Chloride 103 mmol/L (98-107) 11/17/22 13:30 Carbon Dioxide 25.3 mmol/L (21.0-32.0) 11/17/22 13:30 BUN 16 mg/dL (7-18) 11/17/22 13:30 Creatinine 0.9 mg/dL (0.55-1.02) 12/06/22 12:50 Est GFR (CKD-EPI 2020) 63.83 (mL/min/1.73m2) 12/06/22 12:50 Calcium 8.4 mg/dL (8.5-10.1) L 11/17/22 13:30 Albumin 3.4 g/dL (3.4-5.0) 11/17/22 13:30 Glucose 111 mg/dL (74-106) H 11/17/22 13:30 Liver Function Panel: Alanine Aminotransferase (ALT/SGPT) 28 U/L (14-59) 11/17/22 13:30 Aspartate Amino Transf (AST/SGOT) 22 U/L (15-37) 11/17/22 13:30 Coagulation Panel: No Data to Display Cardiac Panel: No Data to Display Arterial Blood Gas: No Data to Display Venous Blood Gas: No Data to Display Pancreas Panel: No Data to Display Thyroid Panel: No Data to Display Infectious Disease: No Data to Display Blood Cultures: No Data to Display Toxicology Panel: No Data to Display Imaging and Studies Imaging and Studies Study information below may be from another EMR and interpreted by another provider. Please see original notes in EMR for more complete details. EKG Summary: 07/31: sinus rhy. Carotid Artery Summary:: 05/31: minimal plaque at left common carotid bulb. no hemodynamically sig carotid stenosis. Anesthesia Assessment and Plan Anesthesia History Personal History: No History of Anesthesia Complications Family History: No Family History of Anesthesia Complications Exercise Tolerance Exercise Tolerance: Metabolic Equivalents>4 Cardiac & Pulmonary Exam Cardiac Exam: Normal S1/S2 Heart Sounds Pulmonary Exam: Clear Bilateral Breath Sounds Implantable Cardiac Device Does patient have a Pacemaker or an ICD?: No Airway Exam Known Difficult Airway: No Mallampati Class: 3 Mouth Opening: Normal (> 3cm) Thyromental Distance: Greater than 3 cm Neck Range of Motion: Full ROM Neck Circumference: Normal Teeth Condition: Normal Dentition ASA Classification ASA Score: ASA 2 Emergency Case?: No NPO Status NPO Status: NPO Clears >2 hours, Solids >8 hours Anesthesia Plan Resuscitation Status: Full Code Anesthesia Technique: MAC Anesthesia Airway Planned: Natural Airway Monitors Used: Standard Monitors Preoperative Comments:: 82 yo female for cataract removal. Sig PMHx: anxiety, HTN (amlodipine, losartan), GERD, polyneuropathy/spinal stenosis (lumbar decompression at [facility]), tremor/gait disorder, prednisone.
[2022-12-16 07:21] VITALS: BP 163/82; PULSE 83; RESP 18; TEMP 36.4; O2SAT 96
[2022-12-16] MEDS: Tropicam./Phenyleph. (1/2.5%) 5 ML BTL OD ×3 (07:26→07:44)
[2022-12-16 07:30] VITALS: BMI 24.0
[2022-12-16] MEDS: Trypan Blue 0.06% 0.5 ML SYR (08:37)
[2022-12-16] MEDS: Balanced Salt Soln.-PLUS 500 ML BAG OP (08:38)
[2022-12-16] MEDS: Tetracaine 0.5% 4 ML BTL OD (08:39)
[2022-12-16] MEDS: Lidocaine 1% Pres-Free 5 ML VIAL (08:39)
[2022-12-16] MEDS: Duovisc Viscoelastic System EACH 1 EACH (08:40)
[2022-12-16] MEDS: Povidone-Iodine Ophth 30 ML BTL (08:40)
[2022-12-16] MEDS: Phenylephrine/Lidocaine (15/10) MG/ML 1 ML VIAL (08:40)
[2022-12-16 09:15] VITALS: BP 142/78; PULSE 87; RESP 16; TEMP 36.7; O2SAT 98
--- NOTE | 2022-12-16 09:21 | W.PM.DSUDISC ---
Date of service: 12/16/22 Time of Service: 09:21 Discharge Plan Disposition Patient Disposition: Home Discharge Details Reason For Visit: cataract Attending Provider: Petar Piper Primary Care Provider: Sara Pandey Home Meds and New Rx's Prescriptions: No Action prednisone 1 mg tablet 1 mg PO DAILY Qty: 18 0RF mirtazapine 15 mg tablet 15 mg PO QHS Patient Comments: RX. BY DR. LAZARO PLUNKETT sertraline 50 mg tablet 50 mg PO DAILY Patient Comments: TAKE 1 TABLET BY MOUTH EVERY MORNING gabapentin 300 mg capsule 300 mg PO DAILY amlodipine 5 mg tablet 5 mg PO DAILY Qty: 90 4RF losartan 100 mg tablet 100 mg PO DAILY Qty: 90 3RF Discharge Instructions Stand Alone Forms: Post-op Topical CataractHardik (DSU) Discharge Orders Discharge Orders: Discharge Order (Routine); Ordered 12/16/22 Ordered By: Petar Piper DS: Diagnosis Discharge Diagnosis (1) Cortical age-related cataract, right eye: Status: Resolved (2) Nuclear age-related cataract, right eye: Status: Resolved
--- NOTE | 2022-12-16 09:23 | ROE_ITS ---
Date of service: 12/16/22 Time of Service: : Operative Note Operative Note DATE OF PROCEDURE: 12/16/22 PRE-OP DIAGNOSIS: Dense nuclear/cortical/posterior subcapsular cataract, right eye Poorly dilating pupil, right eye Poor red reflex, right eye secondary to cataract POST-OP DIAGNOSIS: same PROCEDURE: 1. Cataract extraction by phacoemulsification with intraocular lens implantation, right eye, with pupillary expansion device SURGEON: Petar Piper ANESTHESIA TYPE: Local By Surgeon and MAC Refer to Anesthesia Record PATHOLOGY: none sent COMPLICATIONS: None Patient was transported to: same day Patient's condition: stable Implants: Alex and Alex Tecnis Eyhance DIB00 Morcher Type 15 Capsular Tension Ring Indications: Progressive decreased vision due to cataract, right eye, with poorly dilating pupil Procedure Description: CATARACT SURGERY OPERATIVE REPORT PREOPERATIVE DIAGNOSIS: 1. Dense nuclear/cortical/posterior subcapsular cataract, right eye 2. Poorly dilating pupil, right eye POSTOPERATIVE DIAGNOSIS: Same OPERATION: 1. Cataract extraction using phacoemulsification with posterior chamber intraocular lens implant, right eye. 2. Pupillary dilation and iris stabilization using Malyugin Ring IOL: IOL Graphic User Interface Designer/Model: Alex & Alex Tecnis Eyhance DIB00 IOL Power: + 21.0 diopters IOL Serial Number: [id number] Optic Diameter: 6.0mm Haptic/Overall Diameter: 13.0mm PHACO INFO: Get [employer]urion Vision System with OZil and Active Fluidics Cumulative Dispersed Energy (CDE): 13.04 seconds SURGEON: Petar Piper MD, SANDEEP ANESTHESIA: Monitored Anesthesia Care (MAC), with local sub-tenon's anesthetic infiltration COMPLICATIONS: None SPECIMENS: None INDICATIONS FOR PROCEDURE: The patient is an 82-year-old lady with history of diminished visual acuity in her right eye secondary to the development of dense nuclear/cortical/posterior subcapsular cataract. She is significantly symptomatic that she desires cataract surgery and attempt to improve and maximize her vision. See office notes for detailed information. PROCEDURE: The correct surgical eye was identified and marked as the right eye and the pupil was dilated in the preoperative area using mydriatics and cycloplegics. The dilated pupil size was 4.0 mm. . The patient was brought to the operating room where cardiopulmonary monitoring was instituted and surgical time-out was performed, confirming the correct operative eye and IOL power. Topical anesthesia was administered and ophthalmic povidone-iodine 5% was instilled into the conjunctival fornices. Lidocaine gel was applied to the cornea and the moses-ocular area was prepped with Betadine 10% solution and draped in the usual sterile fashion for intraocular surgery, including an aperture drape. A Tegaderm transparent film dressing was cut in half and used to cover the lashes and lid margins. Care was taken to sequester the lashes and lid margins under the Tegaderm dressing. A lid speculum was placed between the lids of the operative eye and the Get Lux[employer] Revalia operating microscope was maneuvered into position. Tino scissors were then used to make a conjunctival buttonhole approximately 6mm posterior to the limbus in the inferonasal quadrant. Blunt dissection was carried out to expose bare sclera, and a blunt-tipped sub-tenon?s anesthesia cannula was introduced and passed posteriorly along the globe where non-preserv ed plain lidocaine was injected into posterior sub-Tenon?s space. A sideport knife was used to make a paracentesis port. Intraocular phenylephrine/lidocaine was injected in the anterior chamber. The anterior chamber was filled with cohesive viscoelastic. A keratome knife was used to construct a 2-plane near-clear corneal tunnel extending 2.0mm into clear cornea. A 6.25 mm Malyugin Ring was then inserted into the pupillary space and engaged with the Kuglen hook. The viscoelastic was then removed using the irrigation aspiration handpiece. VisionBlue was then injected into the anterior chamber and allowed to sit for approximately 20 seconds, and then was irrigated out. The anterior chamber was then filled with Viscoat. A flap was raised on the anterior capsule and capsulorhexis forceps were used to complete a continuous curvilinear capsulorhexis of 5.0 mm. The capsule was noted to be extremely thin with loose zonules. Balanced salt solution was then used to perform cortical cleaving hydrodissection and nuclear hydrodelineation until the lens could be freely rotated within the capsular bag. The lens nucleus was then disassembled and removed within the capsular bag and iris plane using phacoemulsification. Significant mobility of the lens-zonular complex was noted. Residual cortical material was removed using the irrigation/aspiration handpiece. The posterior capsule was carefully polished to remove as much residual lens epithelial cells as safely possible. The capsular bag was then inflated and the anterior chamber deepened with viscoelastic. A Morcher Type 15 capsular tension ring was then inserted into the eye. The lens implant described above was inserted into the capsular bag using the Alex and Alex Simplicity pre-loaded injector. A Kuglen hook was used to dial the IOL into position. The Malyugin Ring was removed in the reverse order of its insertion. Residual viscoelastic was then removed first from posterior to the IOL, then from the anterior chamber using the I/A handpiece. The lens implant was noted to center nicely within the capsular bag. The incisions were stromally hydrated, and the anterior chamber was reformed using BSS. Then 0.5cc of moxifloxacin 1.0mg/ml were injected into the capsular bag and anterior chamber. The incisions were checked with a Weck spear and found to be secure. Several drops of ophthalmic povidone-iodine 5% were then applied to the eye followed by two drops of Imprimis combination prednisolone/moxifloxacin/nepafenac solution. The drapes were removed and a clear plastic protective eye shield was placed over the eye. The patient was then returned to Same Day Surgery in stable condition.
--- NOTE | 2022-12-16 09:28 | W.ANESPOSTOP ---
Postoperative Evaluation Date, Time and Location Date Performed: 12/16/22 Time Performed: 09:28 Patient Location: Day Surgery Unit Vital Signs Most Recent Imported Vital Signs: Most Recent Vital Signs Temp Pulse Resp BP Pulse Ox 36.7 C 87 16 142/78 H 98 12/16/22 09:15 12/16/22 09:15 12/16/22 09:15 12/16/22 09:15 12/16/22 09:15 Pain Score Most Recent Pain Score: Most Recent Pain Score Pain Level 0 12/16/22 09:15 Assessment Mental Status: Awake (Alert & Oriented to Patient Baseline) Airway and Respiratory Function: Patent airway with normal (patient baseline) respiratory exam Cardiovascular Function: Hemodynamically Stable Hydration Status: Adequately Hydrated Nausea & Vomiting: No Nausea or Vomiting Pain: Pt. Denies Any Pain Peripheral Nerve Block: Patient did not receive a nerve block
== END 2022-12-16 09:53 | disposition home or self-care (01) ==
PROVIDERS: PCP Family Medicine; Visit Provider Ophthalmology
PROC: (CPT 66982; principal; 2022-12-16 08:30)
DX: H25.011 Cortical age-related cataract, right eye (principal); H25.11 Age-related nuclear cataract, right eye; I10 Essential (primary) hypertension; K21.9 Gastro-esophageal reflux disease without esophagitis
CPT/HCPCS: 66982; V2632

== ENCOUNTER 2023-02-02 02:59 | Outpatient (CLI) | payer MEDICARE, SELFPAY ==
--- NOTE | 2023-02-02 07:45 | DI.RAD_ITS ---
Exam(s) XR KNEE RT 3V AP,LAT,ZACHERY EXAM: XR KNEE RT 3V AP,LAT,ZACHERY CLINICAL HISTORY: right knee pain,M25.561. TECHNIQUE: 2D digital imaging was performed. COMPARISON: No exams were available for comparison FINDINGS: 3 views No evidence of fracture nor prominent joint effusion. Small amount of increased joint fluid noted. Bone density is age-appropriate. No prominent joint space narrowing nor osteophytes evident. Tibial plateau appears unremarkable. IMPRESSION: There significant osseous findings. DATA REPOSITORY: RADIATION DOSE DELIVERED:
== END 2023-02-02 03:19 ==
LOC: DI 02:59
PROVIDERS: PCP Family Medicine; Visit Provider Family Medicine
DX: M25.561 Pain in right knee (principal)
CPT/HCPCS: 73562

== ENCOUNTER 2023-03-07 03:22 | Outpatient (CLI) | payer MEDICARE, SELFPAY ==
[2023-03-07 13:03] LABS: Abs Immature Grans 0.02 10^3/uL (0.0-0.06); Absolute Basophil Count 0.03 10^3/uL (0.0-0.2); Absolute Eosinophil Count 0.23 10^3/uL (0.0-0.7); Absolute Lymphocyte Count 2.64 10^3/uL (1.2-3.4); Absolute Monocyte Count 0.78 10^3/uL (0.1-0.8); Absolute Neutrophil Count 6.39 10^3/uL (1.2-6.7); Basophils % 0.3; Eosinophils % 2.3; HCT 38.6 % (36.0-46.0); HGB 12.6 g/dL (11.2-15.7); Immature Grans % 0.2; Lymphocytes % 26.2; MCH 29.3 pg (27.0-33.0); MCHC 32.6 % (32.0-36.0); MCV 90 fL (80-95); MPV 10.8 fL (8.0-11.0); Monocytes % 7.7; Neutrophils % 63.3; Platelet Count 227 10^3/uL (130-400); RDW 12.9 % (11.7-14.6); RDW-SD 42.6 fL; WBC 10.09 10^3/uL (4.4-10.8)
[2023-03-07 13:08] LABS: ESR 5 mm/hr (0-30)
[2023-03-07 13:58] LABS: ALT 22 U/L (14-59); AST 16 U/L (15-37); Albumin 3.5 g/dL (3.4-5.0); Alkaline Phosphatase 102 U/L (46-116); Anion Gap 7.3 mmol/L (3-11); BUN 16 mg/dL (7-18); Bilirubin, Total 0.4 mg/dL (0.2-1.0); C-Reactive Protein 0.08 mg/dL (0.0-0.3); CO2 28.7 mmol/L (21.0-32.0); Calcium 8.9 mg/dL (8.5-10.1); Chloride 107 mmol/L (98-107); Estimated GFR 56.25 (mL/min/1.73m2); Glucose 131 mg/dL (74-106); Potassium 4.3 mmol/L (3.5-5.1); Sodium 143 mmol/L (136-145); Total Protein 6.8 g/dL (6.4-8.2)
== END 2023-03-07 03:23 | disposition home or self-care (01) ==
LOC: LBO 03:22
PROVIDERS: PCP Family Medicine; Visit Provider Internal Medicine Rheumatology
DX: M35.3 Polymyalgia rheumatica (principal)
CPT/HCPCS: 36415; 80053; 85652; 85025; 86140

== ENCOUNTER → 2023-03-17 14:01 | Outpatient (CLI) | payer MEDICARE, SELFPAY ==
--- NOTE | 2023-03-17 13:45 | DI.US_ITS ---
Exam(s) US LOWER EXTREMITY VENOUS RT EXAM: US LOWER EXTREMITY VENOUS RT CLINICAL HISTORY: right leg swelling,R60.0 TECHNIQUE: Right lower extremity venous ultrasound performed using grayscale, color-flow, and spectr al Doppler analysis. COMPARISON: No exams were available for comparison FINDINGS: The right common femoral, femoral and popliteal veins demonstrate normal compressibility, augmentatio n, and color Doppler. The posterior tibial vein are patent. One of the paired peroneal veins shows n onocclusive thrombus. This measures 3 cm in length. The saphenofemoral junction is unremarkable. T here is no evidence of a Peguero cyst. The soft tissues are unremarkable. IMPRESSION: 1. Nonocclusive thrombus is seen in 1 of the paired peroneal veins in the calf. 2. The right lower extremity deep veins are otherwise clear and free of thrombus. DATA REPOSITORY:
== END ==
PROVIDERS: PCP Family Medicine; Visit Provider Family Medicine
DX: I82.451 Acute embolism and thrombosis of right peroneal vein (principal)
CPT/HCPCS: 93971

== ENCOUNTER 2023-03-17 19:48 | Emergency (ER) | payer MEDICARE, SELFPAY ==
[2023-03-17 19:51] VITALS: BP 134/88; PULSE 82; RESP 15; O2SAT 95
[2023-03-17 21:21] VITALS: RESP 20
--- NOTE | 2023-03-17 21:35 | ED.GENADUL_ITS ---
Discharge Plan Disposition Patient Disposition: Home Discharge Details Clinical Impression: DVT (deep venous thrombosis) Primary Care Provider: Sara Pandey ED Provider: Petar García Home Meds and New Rx's Prescriptions: New rivaroxaban 15 mg (42)- 20 mg (9) tablets,dose pack See Rx Instructions .ROUTE .COMPLEX Qty: 51 0RF Rx Instructions: take one-15 mg tablet twice daily for 21 days, then one-20 mg tablet once daily; must take with meal/food No Action mirtazapine 15 mg tablet 15 mg PO QHS Patient Comments: RX. BY DR. LAZARO PLUNKETT sertraline 50 mg tablet 50 mg PO DAILY Patient Comments: TAKE 1 TABLET BY MOUTH EVERY MORNING hydroquinone 4 % cream 1 applic topical BID Qty: 28.35 1RF gabapentin 300 mg capsule 300 mg PO BID losartan 100 mg tablet 100 mg PO DAILY Qty: 90 3RF amlodipine 5 mg tablet 5 mg PO DAILY Qty: 90 4RF rivaroxaban 15 mg (42)- 20 mg (9) tablets,dose pack See Rx Instructions PO .COMPLEX 28 Days Qty: 51 0RF Rx Instructions: take one-15 mg tablet twice daily for 21 days, then one-20 mg tablet once daily; must take with meal/food PO Xarelto 20 mg tablet 20 mg PO DAILY 90 Days Qty: 60 0RF Rx Instructions: must administer with evening meal; start after completing the starter pack. Discharge Instructions Instructions: Deep Vein Thrombosis (ED) Additional Instructions: We are providing you with enough medication for this weekend. You are to take one 15 mg tablet twice daily with food. We will call in a prescription for a new starter pack of Xarelto that you can pick pulling machine tender on Monday at your pharmacy. If you have any issues obtaining further medication or have any worsening symptoms please do not hesitate to return to the emergency department. Please follow-up close with your primary care physician on Monday Medical Decision Making 82-year-old female recent diagnosis of right lower extremity DVT confirmed on outpatient ultrasound, prescription for Xarelto called [facility] by primary care physician however pharmacy does not have starter pack in stock and will not have medication in stock until Monday. Patient family here to receive first dose of anticoagulation and enough medication to get that through the weekend specifically requesting repeat prescription for starter pack as pharmacy was confused about initial prescription. I encouraged patient and family to follow-up closely with primary care next week to let them know what is transpired. There is no chest pain shortness of breath or vital sign abnormalities to suggest worsening clot burden or pulmonary embolism. Patient is ambulatory without assistance. HPI General Date/Time Provider Initiated Documentation: 03/17/23 20:35 . HPI Narrative: 82-year-old female diagnosed as an outpatient today with right lower extremity DVT confirmed on ultrasound, primary care physician called in prescription for Xarelto to [facility] however the pharmacy did not carry the starter pack and will not have the medication available until Monday. Patient family here requesting dosage of anticoagulant to get him through the weekend and new prescription with specific instructions for pharmacy to fill starter pack. No chest pain or shortness of breath. No new symptomatology. Related Data Home Medications Medication Instructions Recorded Confirmed sertraline 50 mg tablet 50 mg PO DAILY 09/03/21 03/17/23 losartan 100 mg tablet 100 mg PO DAILY #90 tab-caps 07/06/22 03/17/23 mirtazapine 15 mg tablet 15 mg PO QHS 10/14/22 03/17/23 hydroquinone 4 % topical cream 1 applic topical BID #28.35 grams 12/23/22 03/17/23 gabapentin 300 mg capsule 300 mg PO BID 01/25/23 03/17/23 amlodipine 5 mg tablet 5 mg PO DAILY #90 tab-caps 02/14/23 03/17/23 rivaroxaban 15 mg (42)-20 mg (9) See Rx Instructions PO .COMPLEX 03/17/23 tablets in a starter pack #51 dose pk rivaroxaban 15 mg (42)-20 mg (9) See Rx Instructions PO .COMPLEX 4 03/17/23 tablets in a starter pack weeks #51 dose pk rivaroxaban 20 mg tablet (Xarelto) 20 mg PO DAILY 3 months #60 tabs 03/17/23 Previous Rx's Medication Instructions Recorded losartan 100 mg tablet 100 mg PO DAILY #90 tab-caps 07/06/22 hydroquinone 4 % topical cream 1 applic topical BID #28.35 grams 12/23/22 amlodipine 5 mg tablet 5 mg PO DAILY #90 tab-caps 02/14/23 rivaroxaban 15 mg (42)-20 mg (9) See Rx Instructions PO .COMPLEX 03/17/23 tablets in a starter pack #51 dose pk rivaroxaban 15 mg (42)-20 mg (9) See Rx Instructions PO .COMPLEX 4 03/17/23 tablets in a starter pack weeks #51 dose pk rivaroxaban 20 mg tablet (Xarelto) 20 mg PO DAILY 3 months #60 tabs 03/17/23 Allergies Allergy/AdvReac Type Severity Reaction Status Date / Time No Known Allergies Allergy Verified 03/17/23 13:26 General Stated Complaint: Vascular ARIK: 3 Review of Systems Narrative: Review of Systems Constitutional: negative Eyes: negative ENT: negative Cardiovascular: negative Respiratory: negative Gastrointestinal: negative : negative Musculoskeletal: Leg swelling Skin: negative Neurologic: negative Psych: negative PFSH All Active Problems (Updated 03/17/23 @ 21:41 by Petar García MD) Anxiety (Chronic 2013) Severe persistent; sees psychiatry - Dr. Rivera in [place]; venlafaxine caused nausea, sertraline effective. Essential hypertension (Chronic 05/30/13) GERD (gastroesophageal reflux disease) (Chronic) EGD 07/26. 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 Grandfather Heart disease Grandmother No problems noted. Grandmother No problems noted. Social History Smoking/Tobacco Use Status: Never Smoking risk assessment performed?: Yes Alcohol Intake: current Alcohol Intake frequency: 0-2 drinks per day Drug use: Never Household members: other Details: 2 Housing: house Number of Children: 3 current occupation: Retired teacher What type of physical activity do you participate in: none Special ernie needs: No Do you feel safe at home: Yes Do you feel safe in your relationship?: Yes Exam Narrative Exam Narrative: Physical Examination General: alert, awake, cooperative, resting comfortably, no acute distress HEENT: normocephalic, atraumatic Respiratory: normal respiratory effort, speaking in full sentences Psych: Appropriate mood and affect Course Vital Signs Vital signs: Vital Signs Pulse 82 03/17/23 19:51 Respiratory Rate 15 03/17/23 19:51 Blood Pressure 134/88 03/17/23 19:51 Pulse Oximetry 95 03/17/23 19:51 Pulse 82 03/17/23 19:51 Respiratory Rate 20 03/17/23 21:21 Respiratory Effort Normal, Non-Labored 03/17/23 21:21 Respiratory Depth Normal 03/17/23 21:21 Respiratory Pattern Normal 03/17/23 21:21 Blood Pressure 134/88 03/17/23 19:51 Blood Pressure Position Sitting 03/17/23 19:51 Pulse Oximetry 95 03/17/23 19:51 Oxygen Delivery Method Room Air 03/17/23 19:51 Oxygen Flow Rate 0 03/17/23 19:51
[2023-03-17] MEDS: Rivaroxaban 15 MG TABLET PO (21:49)
[2023-03-17] MEDS: Rivaroxaban 15 MG TABLET 60 MG PO (21:50)
== END 2023-03-17 21:51 | disposition home or self-care (01) ==
PROVIDERS: Emergency Provider Emergency Medicine; PCP Family Medicine
DX: I82.401 Acute embolism and thrombosis of unspecified deep veins of right lower extremity (principal)
CPT/HCPCS: 99283; 93971; 99284

== ENCOUNTER 2023-05-09 02:44 | Emergency (ER) | payer MEDICARE, SELFPAY ==
[2023-05-09] VITALS (22 sets, daily range): BP systolic 138–176; BP diastolic 63–86; PULSE 64–80; RESP 12–25; TEMP 36.6; O2SAT 92–98
--- NOTE | 2023-05-09 02:45 | RT.EKG_ITS ---
APPROVED REPORT Exam: Resting ECG Reason for Exam: weakness Patient Location: E HR:75 bpm ECG Measurements Heart Rate 75 AXIS MS 169 P 3 QRSd 93 QRS -30 QT 408 T 13 QTc 456 Conclusion Sinus rhythm...normal P axis, V-rate 60- 99 Low voltage, precordial leads...precordial leads <1.0mV Little change vs 07/16/21 except more prominent T waves V4-6 this EKG
--- NOTE | 2023-05-09 03:15 | DI.CT_ITS ---
Exam(s) CT BRAIN NECK CTA EXAM: CT BRAIN NECK CTA CLINICAL HISTORY: ataxia. TECHNIQUE: Imaging Protocol: Axial CT angiography was performed with multi-slice acquisition and mu lti-planar and/or 3D reconstructions. CONTRAST MATERIAL: Intravenous: Omnipaque 350 contrast volume:85 mL COMPARISON: MR MR BRAIN WO/W from 12/06/2022 FINDINGS: CT Head W/O and W: Ventricles and Extra axial spaces: Normal in size and morphology for the patient's age. Hemorrhage: None. Cerebral parenchyma: There are areas of decreased attenuation in the white matter consistent with sma ll vessel ischemic disease. Midline shift: None. Brainstem/Cerebellum: Normal. Calvarium: Normal. Visualized Paranasal sinuses/Mastoids: Clear. Soft Tissues: Unremarkable. Enhancement: Incidental note is made of a 9 mm enhancing nodule in the anterior aspect of the left mi ddle cranial fossa consistent with the meningioma. CTA Neck W: Common Carotid: Right: No dissection, occlusion or significant stenosis. Left: No dissection, occlusion or significant stenosis. External Carotid: Right: No occlusion or significant stenosis. Left: No occlusion or significant stenosis. Internal Carotid: Right: No dissection, occlusion or significant stenosis. Mild atherosclerosis at the origin. Left: No dissection, occlusion or significant stenosis. Mild atherosclerosis at the origin. Vertebral Artery: Right: No dissection, occlusion or significant stenosis. Left: No dissection, occlusion or significant stenosis. Lung Apices: Normal. Bones: Within normal limits for the patient's age. Soft Tissues: Normal. Thyroid gland: There is a multinodular thyroid gland. The largest nodule measures 5 mm. No follow-u p is recommended. CTA Brain W: Internal Carotid Arteries: Mild atherosclerosis. No evidence of aneurysm or significant stenosis. Anterior Cerebral Arteries: Right: No aneurysm, occlusion or significant stenosis. Left: No aneurysm, occlusion or significant stenosis. Middle Cerebral Arteries: Right: No aneurysm, occlusion or significant stenosis. Left: No aneurysm, occlusion or significant stenosis. Posterior Cerebral Arteries: Right: No aneurysm, occlusion or significant stenosis. The right [employer] arises from the right posterior communicating artery which is a normal variant. Left: No aneurysm, occlusion or significant stenosis. Vertebral Arteries: Right: No aneurysm, occlusion or significant stenosis. Left: No aneurysm, occlusion or significant stenosis. Basilar Artery: No aneurysm, occlusion or significant stenosis. IMPRESSION: 1. No large vessel occlusion or significant stenosis on the CT angiography of the head. 2. Incidental note is made of a stable 9 mm left middle cranial fossa meningioma. 3. No acute intracranial process. 4. No occlusion or significant stenosis on the CT angiography of the neck. RADIATION DOSE DELIVERED: Total DLP DATA REPOSITORY: All CT scans at this facility are submitted to the National Radiology Data Registry (NRDR) Dose Index Registry (DIR) with the [employer] (ACR). RADIATION OPTIMIZATION: All CT scans at this facility use at least one of these dose optimization te chniques: automated exposure control; mA and/or kV adjustment per patient size (includes targeted exa ms where dose is matched to clinical indication); or iterative reconstruction.
--- NOTE | 2023-05-09 03:23 | W.ED.GENAD ---
Discharge Plan Disposition Patient Disposition: Home Discharge Details Clinical Impression: Hypertension Primary Care Provider: Sara Pandey ED Provider: Benita Canas Home Meds and New Rx's Prescriptions: Continued mirtazapine 15 mg tablet 15 mg PO QHS Patient Comments: RX. BY DR. LAZARO PLUNKETT sertraline 50 mg tablet 50 mg PO DAILY Patient Comments: TAKE 1 TABLET BY MOUTH EVERY MORNING vitamin B complex [B Complex-Vitamin B12] Tablet 1 tab PO DAILY gabapentin 300 mg capsule 300 mg PO DAILY Caltrate 600-D Plus Minerals 600 mg calcium- 800 unit-50 mg tablet 1 tab PO DAILY losartan 100 mg tablet 100 mg PO DAILY Qty: 90 3RF amlodipine 5 mg tablet 5 mg PO DAILY Qty: 90 4RF Xarelto 20 mg tablet 20 mg PO DAILY 90 Days Qty: 30 0RF Rx Instructions: must administer with evening meal; start after completing the starter pack. Discharge Instructions Instructions: Hypertension (ED) Additional Instructions: Your doctor should call you later on today for a follow-up appointment for either today or tomorrow. Take your blood pressure once a day at home and record this to bring to your doctor. Return to ED for weakness, numbness, changes in your speech/hearing/vision, any other focal neurologic deficits or concerns. Discharge Data Discharge Date/Time-TO BE ENTERED AT DEPARTURE: 05/09/23 06:08 Medical Decision Making Patient ambulated to the bathroom without any difficulty whatsoever. [address] Lea, hospitalist. Patient has a history of hypertension and hyperlipidemia. She is on rivaroxaban for DVT. She also has neuropathy and PMR. On 11/29 her doctor documented a neurodegenerative gait disorder. An MRI was recommended but the patient apparently did not get this. She denies knowing anything about this diagnosis. It is questionable whether the patient could have had a mild TIA. Dr. Lea does not think the evidence is strong enough to admit the patient and he and I agreed that close outpatient follow-up will be essential. I did add on a lipid profile for her doctor. This was discussed with the patient and her who concurred with the plan. Pt. has an appt. with her PCP tomorrow. Medical Records Medical records reviewed: Yes I reviewed the patient's medical records. Lab Data Lab results reviewed: Yes I reviewed the patient's lab results. Lab results narrative: CBC, CMP, and troponin are all within normal limits except for sodium of 146 and chloride of 108. INR is 1.4. PTT is 36.4 ECG Data Attestation: I personally reviewed and interpreted this ECG (s) as follows: (Normal sinus rhythm at 75, some low voltage, early R wave progression, except more prominent T waves V4 through V6 this EKG versus prior) HPI General Date/Time Provider Initiated Documentation: 05/09/23 02:57. HPI Narrative: This 82-year-old female patient presents with a chief complaint of gait instability noted when she went to go to the bathroom about 1:00 this morning. Patient states that earlier in the day she had been at the urgent care because her blood pressure was high. She says that she has a lot of family stress and was concerned that the reading was high. Urgent care evidently told her if she had any kind of neurologic symptoms she should come to the emergency department. When she got up to go to the bathroom at 1 AM she states that she felt like her balance and gait were off. She was able to walk to the bathroom and back to the bed without issue. She laid down in bed and then woke up her . They decided that she should get dressed and come to the emergency department. When she got up 30 minutes later the symptoms had resolved. The patient states she had 1-1/2 glasses of wine tonight. Her medical history lists neurodegenerative gait disorder but the patient says she has no idea what this is. She also has a history of neuropathy and spinal stenosis. The patient denies hearing loss. She has chronic tinnitus and says its been louder over the past few days. She denies dizziness or vertigo. She states that although she thought she might fall she does not have any weakness. There is no fever or URI symptoms. She has no chest pain or shortness of breath. There is no abdominal pain, nausea, or vomiting. She has no dysuria. She has chronic pedal edema. She says that she has a mild headache. She is on rivaroxaban for right leg DVT. She is no change in her vision or speech. There is no weakness or numbness. Related Data Home Medications Medication Instructions Recorded Confirmed sertraline 50 mg tablet 50 mg PO DAILY 09/03/21 05/09/23 losartan 100 mg tablet 100 mg PO DAILY #90 tab-caps 07/06/22 05/09/23 mirtazapine 15 mg tablet 15 mg PO QHS 10/14/22 05/09/23 amlodipine 5 mg tablet 5 mg PO DAILY #90 tab-caps 02/14/23 05/09/23 rivaroxaban 20 mg tablet (Xarelto) 20 mg PO DAILY 3 months #30 tabs 04/10/23 05/09/23 vitamin B complex (B 1 tab PO DAILY 04/13/23 05/09/23 Complex-Vitamin B12 tablet) calcium 600 mg-D3 800 unit-mag11 1 tab PO DAILY 04/28/23 05/09/23 50 ap-ahgc-eayenk-suhail-s.borat tablet (Caltrate 600-D Plus Minerals) gabapentin 300 mg capsule 300 mg PO DAILY 04/28/23 05/09/23 Previous Rx's Medication Instructions Recorded losartan 100 mg tablet 100 mg PO DAILY #90 tab-caps 07/06/22 amlodipine 5 mg tablet 5 mg PO DAILY #90 tab-caps 02/14/23 rivaroxaban 20 mg tablet (Xarelto) 20 mg PO DAILY 3 months #30 tabs 04/10/23 Allergies Allergy/AdvReac Type Severity Reaction Status Date / Time No Known Allergies Allergy Verified 05/08/23 18:48 General Stated Complaint: GenMedical ARIK: 3 Review of Systems All systems reviewed & are unremarkable except as noted in HPI and below Constitutional Constitutional: Reports as per HPI, Denies chills, Denies fever(s) and Denies headache(s) Eyes Eyes: Denies blurry vision and Reports other (no redness) ENT Ears, Nose, Mouth, and Throat: Denies dizziness, Denies otalgia, Denies headache(s), Denies nasal congestion, Denies nasal discharge, Denies neck pain and Denies odynophagia Cardiovascular Cardiovascular: Denies chest pain, Denies palpitations and Denies dyspnea Respiratory Respiratory: Denies cough and Denies dyspnea Gastrointestinal Gastrointestinal: Denies abdominal pain, Denies diarrhea, Denies nausea, Denies odynophagia and Denies vomiting Genitourinary Genitourinary: Denies dysuria Musculoskeletal Musculoskeletal: Denies myalgias, Denies muscle weakness, Denies neck pain and Denies numbness Integumentary/Breasts Skin/Breast: Denies erythema and Denies rash Neurologic Neurologic: Denies dizziness, Denies headache(s) and Denies numbness Endocrine Endocrine: Denies palpitations PFSH All Active Problems (Updated 05/09/23 @ 05:55 by Benita Canas MD) Hypertension (Chronic) Lumbosacral spondylosis without myelopathy (Acute) Anxiety (Chronic 2013) Severe persistent; sees psychiatry - Dr. Rivera in [place]; venlafaxine caused nausea, sertraline effective. Essential hypertension (Chronic 05/30/13) GERD (gastroesophageal reflux disease) (Chronic) EGD 07/26. 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 Wren History of endometrial cancer (~2013) Spondylisthesis Palpitations neg stress echo 04/22 Tinnitus Hx of colonic polyps Osteopenia Migraine Surgical History S/P cataract extraction (~12/2022) Status post lumbar spinal arthrodesis (~08/2021) L4-5 Status post breast biopsy Status post laparoscopic hysterectomy Family History Mother Essential hypertension Father Heart disease Brother Heart disease Grandfather No problems noted. Grandfather Heart disease Grandmother No problems noted. Grandmother No problems noted. Social History Smoking/Tobacco Use Status: Never Smoking risk assessment performed?: Yes Alcohol Intake: current Alcohol Intake frequency: 0-2 drinks per day Drug use: Never Substance use type: does not use Household members: other Details: 2 Housing: house Number of Children: 3 current occupation: Retired teacher What type of physical activity do you participate in: none Special ernie needs: No Do you feel safe at home: Yes Do you feel safe in your relationship?: Yes Exam Const General: no acute distress, well developed, well groomed and not in acute distress Nutritional Appearance: well nourished Orientation: alert and oriented x3 HENMT Head: normocephalic and atraumatic Ears: external ears normal Mouth: oropharynx normal and moist mucous membranes Throat: posterior oropharynx normal Eyes Conjunctivae: conjunctivae normal Neck Neck: full ROM and supple Chest Chest: normal inspection of the chest Resp Effort & Inspection: normal respiratory effort Auscultation: clear to auscultation bilaterally Cardio Rate: regular rate Rhythm: regular rhythm Heart Sounds: no murmurs and no rubs GI Inspection: normal to inspection Palpation: soft, nontender and other (non distended) Auscultation: normal bowel sounds Skin General skin exam: no rashes or lesions noted and other (pink, warm, dry) Neuro General: patient alert, patient awake and patient oriented x3 Cranial Nerves: CN's II-XI intact bilaterally Cognition: normal cognition Speech: speech normal Motor: muscle tone normal throughout, strength 5/5 throughout and other (WOOD) Sensory Exam: no sensory deficits noted Coordination: [id number] test normal and Romberg test normal Extrem General: normal to inspection, full ROM and pedal edema present Psych Mental Status: mental status grossly normal Speech and Movement: speech and movement normal Affect: normal affect Course Vital Signs Vital signs: Vital Signs Temperature 36.6 C 05/09/23 02:51 Pulse 80 05/09/23 02:51 Respiratory Rate 14 05/09/23 02:51 Blood Pressure 159/82 H 05/09/23 02:51 Pulse Oximetry 96 05/09/23 02:51 Temperature 36.6 C 05/09/23 03:00 Temperature Source Oral 05/09/23 03:00 Pulse 80 05/09/23 03:00 Respiratory Rate 14 05/09/23 03:00 Respiratory Effort Normal, Non-Labored 05/09/23 03:00 Respiratory Depth Normal 05/09/23 03:00 Respiratory Pattern Normal 05/09/23 03:00 Blood Pressure 159/82 H 05/09/23 03:00 Blood Pressure Position Sitting 05/09/23 03:00 Pulse Oximetry 96 05/09/23 03:00 Oxygen Delivery Method Room Air 05/09/23 03:00 Oxygen Flow Rate 0 05/09/23 03:00 Pain Level 0 05/09/23 03:00
[2023-05-09 03:46] LABS: Abs Immature Grans 0.02 10^3/uL (0.0-0.06); Absolute Basophil Count 0.03 10^3/uL (0.0-0.2); Absolute Lymphocyte Count 3.25 10^3/uL (1.2-3.4); Absolute Monocyte Count 0.76 10^3/uL (0.1-0.8); Absolute Neutrophil Count 4.13 10^3/uL (1.2-6.7); Basophils % 0.4; Eosinophils % 2.4; HCT 39.8 % (36.0-46.0); Immature Grans % 0.2; Lymphocytes % 38.7; MCH 29.1 pg (27.0-33.0); MCHC 32.7 % (32.0-36.0); MCV 89 fL (80-95); MPV 10.2 fL (8.0-11.0); Monocytes % 9.1; Neutrophils % 49.2; Platelet Count 241 10^3/uL (130-400); RBC 4.47 10^6/uL (3.93-5.22); RDW 13.5 % (11.7-14.6); RDW-SD 43.9 fL; WBC 8.39 10^3/uL (4.4-10.8)
[2023-05-09] MEDS: Normal Saline 500 ML IV (03:54)
[2023-05-09 04:01] LABS: INR 1.4 (0.9-1.1); Prothrombin Time 13.4 sec (9.1-11.1)
[2023-05-09 04:02] LABS: PTT Activated 36.4 sec (23.6-32.8)
[2023-05-09 04:19] LABS: Troponin I < 50 ng/L (<or=60)
[2023-05-09 04:22] LABS: ALT 28 U/L (14-59); AST 20 U/L (15-37); Albumin 3.9 g/dL (3.4-5.0); Alkaline Phosphatase 95 U/L (46-116); Anion Gap 10.1 mmol/L (3-11); BUN 16 mg/dL (7-18); Bilirubin, Total 0.4 mg/dL (0.2-1.0); CO2 27.9 mmol/L (21.0-32.0); Calcium 9.3 mg/dL (8.5-10.1); Chloride 108 mmol/L (98-107); ETHANOL BLOOD < 3.0 mg/dL (<10); Estimated GFR 56.25 (mL/min/1.73m2); Glucose 89 mg/dL (74-106); Magnesium 2.3 mg/dL (1.8-2.4); Potassium 4.1 mmol/L (3.5-5.1); Sodium 146 mmol/L (136-145); Total Protein 7.4 g/dL (6.4-8.2)
[2023-05-09] MEDS: Omnipaque 350 MG/ML 100 ML BTL IJ (04:32)
[2023-05-09] MEDS: Normal Saline Flush 10 ML SYR IVP (04:33)
[2023-05-09] MEDS: Normal Saline - Diluent 50 ML VIAL IJ (04:33)
--- NOTE | 2023-05-09 05:21 | DI.VRAD_ITS ---
PROCEDURE INFORMATION: Exam: CTA Head With Contrast, Arteriography Exam date and time: 05/09/2023 4:34 AM Age: 82 years old Clinical indication: Stroke-like symptoms; Ataxia and dizziness/giddiness; Additional info: Ataxia, dizziness TECHNIQUE: Imaging protocol: Computed tomographic angiography of the head with contrast. Exam focused on the arteries. 3D rendering (Not supervised by radiologist): MIP and/or 3D reconstructed images were created by the technologist. Radiation optimization: All CT scans at this facility use at least one of these dose optimization techniques: automated exposure control; mA and/or kV adjustment per patient size (includes targeted exams where dose is matched to clinical indication); or iterative reconstruction. Contrast material: OMNIPAQUE 350; Contrast volume: 85 ml; Contrast route: INTRAVENOUS (IV); COMPARISON: MR BRAIN WO/W 12/06/2022 1:19 PM FINDINGS: ANTERIOR CIRCULATION: Right internal carotid artery: Intracranial segment is patent with no significant stenosis. No aneurysm. Right middle cerebral artery: No occlusion or significant stenosis. No aneurysm. Right anterior cerebral artery: No occlusion or significant stenosis. No aneurysm. Left internal carotid artery: Intracranial segment is patent with no significant stenosis. No aneurysm. Left middle cerebral artery: No occlusion or significant stenosis. No aneurysm. Left anterior cerebral artery: No occlusion or significant stenosis. No aneurysm. POSTERIOR CIRCULATION: Right vertebral artery: No occlusion or significant stenosis. No aneurysm. Left vertebral artery: No occlusion or significant stenosis. No aneurysm. Basilar artery: No occlusion or significant stenosis. No aneurysm. Right posterior cerebral artery: No occlusion or significant stenosis. No aneurysm. Left posterior cerebral artery: No occlusion or significant stenosis. No aneurysm. Brain: 9 mm enhancing extra-axial nodule in the left anterior middle cranial fossa, compatible with meningioma, unchanged. No evidence of acute infarct or hemorrhage Cerebral ventricles: No ventriculomegaly. Bones/joints: Unremarkable. No acute fracture. Soft tissues: Unremarkable. IMPRESSION: 1. Small incidental left middle cranial fossa meningioma 2. No evidence large vessel occlusion PROCEDURE INFORMATION: Exam: CTA Neck With Contrast Exam date and time: 05/09/2023 4:34 AM Age: 82 years old Clinical indication: Stroke-like symptoms; Ataxia and dizziness/giddiness; Additional info: Ataxia, dizziness TECHNIQUE: Imaging protocol: Computed tomographic angiography of the neck with contrast. Exam focused on the cervical segments of the vasculature. 3D rendering (Not supervised by radiologist): MIP and/or 3D reconstructed images were created by the technologist. Radiation optimization: All CT scans at this facility use at least one of these dose optimization techniques: automated exposure control; mA and/or kV adjustment per patient size (includes targeted exams where dose is matched to clinical indication); or iterative reconstruction. Contrast material: OMNIPAQUE 350; Contrast volume: 85 ml; Contrast route: INTRAVENOUS (IV); COMPARISON: US CAROTID 05/25/2022 12:25 PM FINDINGS: Right common carotid artery: No stenosis. No dissection or occlusion. Right internal carotid artery: Mild atherosclerotic plaque formation in the proximal right internal carotid artery Right external carotid artery: No occlusion or stenosis of the origin. Left common carotid artery: No stenosis. No dissection or occlusion. Left internal carotid artery: Mild atherosclerotic plaque formation in the proximal left internal carotid artery Left external carotid artery: No occlusion or stenosis of the origin. Right vertebral artery: No stenosis. No dissection or occlusion. Left vertebral artery: No stenosis. No dissection or occlusion. Soft tissues: Normal. No significant soft tissue swelling. Bones/joints: No acute fracture. Lungs: Multifocal airspace disease Mediastinal space: Calcified granulomas mediastinum IMPRESSION: 1. Less than 50% stenosis of the internal carotid arteries bilaterally 2. Vertebral arteries are patent 3. Multifocal airspace disease REFERENCES: NASCET CRITERIA. The degree of stenosis in the cervical segment of the internal carotid artery is based on NASCET criteria. Normal is no stenosis. Mild is less than 50% stenosis. Moderate is 50-69% stenosis. Severe is 70% to 99% stenosis. Total occlusion is no detectable patent lumen. Dictated and Authenticated by: Wendy Dior MD. Ordering:SANDY Joy MD
[2023-05-09 06:02] LABS: Calculated LDL 154 mg/dL (<100); Cholesterol 250 mg/dL (<200); HDL Cholesterol 79 mg/dL (40-60); Triglyceride 87 mg/dL (<150)
[2023-05-10 14:11] LABS: Lab Add On Test DONE
[2023-05-10 14:56] LABS: Vitamin B12 429 pg/mL (193-986)
== END 2023-05-09 06:08 | disposition home or self-care (01) ==
PROVIDERS: Emergency Provider Emergency Medicine; PCP Family Medicine
DX: I95.1 Orthostatic hypotension (principal); I10 Essential (primary) hypertension; R53.1 Weakness; E78.5 Hyperlipidemia, unspecified; E04.2 Nontoxic multinodular goiter; M35.3 Polymyalgia rheumatica; Z98.1 Arthrodesis status; Z79.899 Other long term (current) drug therapy; Z79.01 Long term (current) use of anticoagulants; Z86.718 Personal history of other venous thrombosis and embolism
CPT/HCPCS: 36415; 70496; 70498; 80053; 80061; 93005; 96360; 99285; 80320; 82607; 83735; 84484; 85025; 85610; 85730; 93010; 99284; J3490

== ENCOUNTER 2023-06-21 14:43 | Outpatient (CLI) | payer MEDICARE, SELFPAY ==
[2023-06-21 15:03] VITALS: BP 139/89; PULSE 84; RESP 20; TEMP 36.8; O2SAT 97
--- NOTE | 2023-06-21 15:42 | DI.RAD_ITS ---
Exam(s) XR PAIN CLINIC LUMBAR SP 2V EXAM: XR PAIN CLINIC LUMBAR SP 2V CLINICAL HISTORY: Dx: Lumbar Spondylosis. TECHNIQUE: Fluoroscopy was provided for the referring physician for guidance with performing pain cl inic injection procedure. COMPARISON: No exams were available for comparison FINDINGS: Please see procedure note for details. Fluoro time: 39.7 seconds RADIATION DOSE DELIVERED: koki Hancock=7.09 mGy
--- NOTE | 2023-06-21 15:42 | PDOC.PAIN ---
Date of service: 06/21/23 Time of Service: 15:42 Pain Managment Procedure Note Procedure Note Procedure Note: PROCEDURE NOTE Bilateral Lumbar Medial Branch Blocks Date of Service: June 21, 2023 Patient: Staci Bragg Provider: Shaggy Ledbetter DO, MPH Staci Bragg has been referred to the [facility] for lumbar medial branch blocks. Pre-operative diagnosis: Lumbar Spondylosis without Myelopathy Post-operative diagnosis: Same Pre-procedure pain: VAS= 5/10 COMMENTS: I previously evaluated her in the clinic. Richi was interviewed and the medical records were reviewed. There were no medical, pharmacologic, radiographic or other structural contraindications to attempting fluoroscopically guided local anesthetic lumbar medial branch blocks. Risks and potential side effects were discussed. I also discussed the potential benefit(s) of the procedure with Staci, and voiced concerns were addressed. After Staci was completely informed about the procedure, the printed consent form was signed. A standard time-out procedure was performed. Staci was placed in the prone position on the fluoroscopy table. Automated blood pressure cuff and pulse oximeter were applied. The skin entry points for approaching the anatomic target points of the segmental medial branches of bilateral L4,L5 were identified with fluoroscopy and marked. The skin at the target site area was thoroughly prepared with Chlorhexadine. The skin was then draped. Next, a 25 gauge 3.5 spinal needle was placed under fluoroscopic guidance down on to the target point (the articular pillar) for each respective segmental medial branch. Position was confirmed in A/P and lateral views. Aspiration revealed no blood or clear fluid. Next, 0.25ml of omnipaque 240 was injected at each level. No contrast following a vascular or neural pattern was visualized under continuous fluoroscopy. Next, 0.25 ml of preservative-free 0.5% bupivicaine was injected at each level. There was no unusual discomfort expressed by Staci. The needles were withdrawn without difficulty. (49 mls of Omnipaque was wasted) Staci was observed and was without hemodynamic, neurologic, or allergic reactions.? Fluoroscopic images were digitally archived. Provacative testing using the Modified Bee's facet loading test- Left side Right Side Directly before the block VAS (0-10) = 5/10 VAS (0-10) = 5/10 Five minutes after the block VAS (0-10) = 1/10 VAS (0-10) = 1/10 Percentage relief obtained with this diagnostic block 90% 90% Any improved physical functioning directly after the blocks? Able to stand up straight and walk with ease Follow up plans and appointments were discussed with Staci. Staci was instructed to keep careful note of how the usual pain was modified by these injections. Specifically, to keep a pain diary for the next 4 hours using a numeric pain scale of 0-10 and report these results. Post procedure instruction was given as documented in the nursing documentation and having met discharge criteria, the patient was [facility]. Based on the medial branches blocked today, if they patient has adequate relief and we are able to proceed to radiofrequency ablation, the treatment should result in the denervation of the bilateral L5-S1 facet joints. We would expect to denervate a total of 2 facets during the radiofrequency ablation. COMMENTS: No apparent complications. Post-procedure pain: VAS= 1/10 Staci will call back with 0-4 hour post-procedure pain scores. I personally performed the entire procedure. SHAGGY LEDBETTER DO, MPH ABPM&R-subspecialty board certification in Pain Medicine [facility]
[2023-06-21 15:48] VITALS: BP 153/76; PULSE 81; RESP 18; O2SAT 97
[2023-06-21] MEDS: Bupivacaine 0.5% Pres-Free 10 ML VIAL IJ (15:51)
[2023-06-21] MEDS: Omnipaque 240 MG/ML 50 ML BTL IJ (15:51)
== END 2023-06-21 14:44 | disposition home or self-care (01) ==
LOC: PC 14:44
PROVIDERS: PCP Family Medicine; Visit Provider Preventive Medicine Occupational Medicine
DX: M54.50 Low back pain, unspecified (principal); M47.816 Spondylosis without myelopathy or radiculopathy, lumbar region
CPT/HCPCS: 00123; 64493; 72100; Q9967

== ENCOUNTER 2023-07-19 16:20 | Outpatient (REF) | payer MEDICARE, SELFPAY ==
[2023-07-19 22:03] LABS: Bilirubin Negative (Negative); Blood Small (Negative); Clarity Cloudy (Clear); Glucose Negative (Negative); Ketones Negative (Negative); Leukocyte Esterase Large (Negative); Nitrite Negative (Negative); Specific Gravity 1.025 (1.005-1.025); Urobilinogen 0.2 mg/dL (Up to 0.2); pH 5.5 (5-8)
[2023-07-19 22:11] LABS: Bacteria Moderate HPF (Negative); Crystals Negative HPF (Negative); Epithelial Cells Rare HPF (Negative); Mucus Trace (Negative); Other Cells Rare Transitional (Negative)
[2023-07-19 22:12] LABS: C & S Indicated? Yes; WBC 20-50 HPF (0-5)
== END 2023-07-19 16:21 | disposition home or self-care (01) ==
LOC: LBN 16:20
PROVIDERS: PCP Family Medicine; Visit Provider Family Medicine
DX: N39.42 Incontinence without sensory awareness (principal); R30.0 Dysuria; B96.29 Other Escherichia coli [E. coli] as the cause of diseases classified elsewhere
CPT/HCPCS: 87077; 81003; 81015; 87086; 87186

== ENCOUNTER → 2023-07-21 02:20 | Outpatient (CLI) | payer MEDICARE, SELFPAY ==
--- NOTE | 2023-07-21 07:30 | DI.US_ITS ---
Exam(s) US LOWER EXTREMITY VENOUS RT EXAM: US LOWER EXTREMITY VENOUS RT CLINICAL HISTORY: right leg pain, recent DVT,i82.401 TECHNIQUE: Right lower extremity venous ultrasound performed using grayscale, color-flow, and spectr al Doppler analysis. COMPARISON: US US LOWER EXTREMITY VENOUS RT from 03/17/2023 FINDINGS: The right common femoral, femoral and popliteal veins demonstrate normal compressibility, augmentatio n, and color Doppler. The posterior tibial and peroneal veins are patent. The saphenofemoral junctio n is unremarkable. There is no evidence of a Peguero cyst. The soft tissues are unremarkable. IMPRESSION: No evidence of a right lower extremity DVT. DATA REPOSITORY:
== END ==
PROVIDERS: PCP Family Medicine; Visit Provider Family Medicine
DX: M79.604 Pain in right leg (principal)
CPT/HCPCS: 93971

== ENCOUNTER → 2023-08-10 13:44 | Outpatient (BNVA) | payer MEDICARE, SELFPAY | PROVIDERS: PCP Family Medicine; Referring Provider Family Medicine; Visit Provider Psychiatry & Neurology Neurology | DX: R20.2 Paresthesia of skin (principal); R26.9 Unspecified abnormalities of gait and mobility | CPT/HCPCS: 99215 ==

== ENCOUNTER 2023-08-16 02:47 | Outpatient (CLI) | payer MEDICARE, SELFPAY ==
[2023-08-18 15:35] LABS: Albumin 61.9 % (55.8-66.1); Albumin g/dL 4.3 g/dL (3.6-5.2)
[2023-08-18 17:36] LABS: Albumin, Urine % 27.9 %; Albumin, Urine mg/dL 2 mg/dL; Globulins, Urine % 72.1 %; Globulins, Urine mg/dL 4 mg/dL; Immunotyping, Urine (See Note); Total Protein Urine 6 mg/dL (See Note)
== END 2023-08-16 02:48 | disposition home or self-care (01) ==
LOC: LBO 02:47
PROVIDERS: PCP Family Medicine; Visit Provider Family Medicine
DX: G62.9 Polyneuropathy, unspecified (principal)
CPT/HCPCS: 36415; 84156; 84166; 86335; 83883; 84165

== ENCOUNTER → 2023-09-25 12:18 | Outpatient (BNVA) | payer MEDICARE, SELFPAY | PROVIDERS: PCP Family Medicine; Referring Provider Family Medicine; Visit Provider Psychiatry & Neurology Neurology | DX: R20.2 Paresthesia of skin (principal); R26.9 Unspecified abnormalities of gait and mobility | CPT/HCPCS: 99214 ==

== ENCOUNTER → 2023-11-27 13:20 | Outpatient (BNVA) | payer MEDICARE, SELFPAY | PROVIDERS: PCP Family Medicine; Referring Provider Family Medicine; Visit Provider Psychiatry & Neurology Neurology | DX: R26.9 Unspecified abnormalities of gait and mobility (principal); G20.A1 Parkinson's disease without dyskinesia, without mention of fluctuations; M48.061 Spinal stenosis, lumbar region without neurogenic claudication; R29.818 Other symptoms and signs involving the nervous system; K59.00 Constipation, unspecified | CPT/HCPCS: 99215 ==

== ENCOUNTER → 2023-12-22 01:16 | Outpatient (CLI) | payer MEDICARE, SELFPAY ==
--- NOTE | 2023-12-22 07:15 | DI.MRI_ITS ---
Exam(s) MR LUMBAR SPINE WO EXAM: MR LUMBAR SPINE WO CLINICAL HISTORY: right low back pain,SPINAL STENOSIS,NEUROGENIC CLAUDICATION,R29.818. TECHNIQUE: Multiplanar multisequence MRI of the Lumbar spine was performed. COMPARISON: MR MR LUMBAR SPINE WO from 11/23/2022 FINDINGS: Again noted is posterior fusion hardware at L4-5 posterior fusion rods supported by bilateral intrape dicular screws at these levels. Conus medullaris is at normal level. There is no evidence of conus mass nor subjacent clumping of in trathecal nerve roots to suggest arachnoiditis. The distal thecal sac appears unremarkable.There is no evidence of Tarlov intrasacral cysts nor other significant findings within the sacral canal Bones:There are no fractures nor ominous osseous lesions in the lumbar vertebral bodies and visualize d sacrum. With respect to the individual levels... T12-L1: Unremarkable L1-2: Normal disc height and signal. No disc herniation nor central canal stenosis.No foraminal steno sis L2-3: Normal disc height. Again noted is annular bulging which is again most prominent is in the late ral left at the level the exiting left neural foramen and posterolateral left, unchanged from previou s. Mild-moderate central spinal canal stenosis at this level is again noted, unchanged. There is no significant narrowing of the exiting right neural foramen. Minimal narrowing of the exiting left ne ural foramen is unchanged.This level appears unchanged from November 2022 MRI study.Mild facet arthropathy again noted. L3-4: This is one level above the fusion. There is preserved disc height and signal.There is mild an nular bulging which is most prominent at the level the floor of the exiting left neural foramen, unch anged from previous. There is mild left-sided foraminal stenosis at this level again noted. There i s no foraminal stenosis on the opposite-right side. There is moderate central spinal canal stenosis due to the annular bulging and short AP dimensions the pedicles and ligamentum flavum hypertrophy, th is is unchanged from the MRI of November 2022. L4-5: This fused level again exhibits mild anterolisthesis of L4 upon L5, unchanged. There is artifa ct from a disc spacer device and the posterior fusion hardware. The amount of mild anterolisthesis o f L4 upon L5 is unchanged. Amount of annular bulging is unchanged. No disc herniation evident centr al canal dimensions remain lower normal. No significant foraminal narrowing on either side. L5-S1: This level continues to exhibit normal disc height and signal without evidence of disc herniat ion or central canal stenosis and there is no foraminal stenosis at this level. No significant facet arthropathy. Soft tissues: Multiple cysts are again noted in both kidneys of varying sizes as well as parapelvic cysts bilaterally. IMPRESSION: 1. When compared to the prior MRI scan of 11/23/2022 there is again noted posterior fusion hardware a nd disc spacer at L4-5 level and findings are basically unchanged from that prior MRI study of 1 year ago. The previously described deterioration at the L3-4 level also appears stable-unchanged from y 2022 with moderate central canal stenosis and mild-moderate left-sided foraminal stenosis. Kingsleyenti ana mariay unchanged. DATA REPOSITORY:
== END ==
PROVIDERS: PCP Family Medicine; Visit Provider Family Medicine
DX: M48.061 Spinal stenosis, lumbar region without neurogenic claudication (principal); R29.818 Other symptoms and signs involving the nervous system; Z98.1 Arthrodesis status
CPT/HCPCS: 72148

== ENCOUNTER → 2024-02-02 00:08 | Outpatient (CLI) | payer MEDICARE, SELFPAY ==
[2024-02-02] MEDS: Omnipaque 350 MG/ML 100 ML BTL IJ (14:17)
[2024-02-02] MEDS: Normal Saline - Diluent 50 ML VIAL IJ (14:21)
--- NOTE | 2024-02-02 14:22 | DI.CT_ITS ---
Exam(s) CT ABDOMEN PELVIS CTA EXAM: CT ABDOMEN PELVIS CTA CLINICAL HISTORY: left abdominal bruit,R09.89. TECHNIQUE: Imaging Protocol: Axial computed tomography images with coronal and sagittal reformatted images were created and reviewed CONTRAST MATERIAL: Intravenous: Omnipaque 350 Contrast volume:100 ml Oral: None COMPARISON: CT CT BRAIN NECK CTA from 05/09/2023 FINDINGS: There are benign-appearing increased subpleural markings in the anterior segment of the right middle lobe. There are no other focal base findings and there are no pleural effusions CARDIAC: Heart size is normal. There is no pericardial effusion. ABDOMEN: AORTA: The abdominal aorta is calcified but not enlarged. Maximum diameter is 2.6 cm proximally and t here is normal tapering of the aorta distally.The common iliac arteries are peripherally calcified bu t not significantly enlarged and there is no significant stenosis at the aortic bifurcation nor in th e common and external iliac arteries. Common femoral arteries also appear unremarkable. The internal iliac arteries in the pelvis are patent and nonaneurysmal. Celiac and superior mesenteric arteries are patent without significant stenosis nor intraluminal embo li. Inferior mesenteric artery is also patent. There is no significant ostial stenosis in the renal arteries nor stenosis in the renal arteries more distally. No evidence of splenic artery aneurysm given the history of left-sided bruit here. There is no ascites. LIVER: There are no obvious focal hepatic lesions evident on this arterial phase study. There is no obvious dilatation of intrahepatic ducts. GALLBLADDER/BILIARY: No obvious gallbladder pathology. CBD is not dilated. PANCREAS: No evidence of pancreatic mass nor dilatation of the pancreatic duct. Pancreatic tail is n ot developed. SPLEEN: Spleen is not enlarged. There are no intrasplenic lesions. Splenic and portal veins are pacheco nt. ADRENALS: There are no significant adrenal masses. KIDNEYS: No solid renal masses evident. There are cysts in both kidneys, both cortical and parapelvi c. The largest cyst in the right kidney is in the posterior cortex and measures 4.8 x 4.5 by 4.6 cm. Smaller exophytic cyst is seen off the lateral cortex measuring 2.5 by 2.5 cm. There is a Bosniak 2 type cyst in the lateral aspect of the left kidney measuring 5 by 5.5 by 4.8 cm, exhibiting periphe ral calcification. Also multiple parapelvic cysts in both kidneys. We performed an additional delaye d sequence which indeed reveals these findings to be incidental benign parapelvic cysts with no evide nce of hydronephrosis on either side. LYMPH NODES: There is no retroperitoneal nor para-aortic adenopathy. No obvious abnormal mesenteric m asses. No abnormal intrapelvic adenopathy. No inguinal adenopathy. ABDOMINAL WALL: No evidence of significant anterior abdominal wall hernia. GI: There is no evidence of bowel obstruction, free air, nor abscess. PELVIS: LYMPH NODES: There is no intrapelvic nor inguinal adenopathy. GI: No evidence of appendicitis.No evidence of sigmoid diverticulitis. URINARY BLADDER: No calculi nor masses evident REPRODUCTIVE: Uterus is surgically absent. There are no abnormal adnexal masses. No free fluid in t he pelvis. OSSEOUS: There is fusion hardware at L4-5 level posterior fusion rods and bilateral intrapedicular sc rews at these 2 levels. Screws appear intact and in good position and the intervertebral disc space device at this level appears to be in satisfactory position. Mild anterolisthesis L4 upon L5. There has been removal of posterior osseous elements at the operated levels. No significant advanced disc space narrowing above and below the level of the fusions. Sacroiliac joints appear unremarkable. N o sacral fractures evident. No significant osseous lesions. Age-related osteopenia evident. IMPRESSION: 1. Age-appropriate appearance of the abdominal aorta and iliac arteries. No evidence of significant aneurysms and no hemodynamically significant stenosis of the abdominal aorta and main branches eviden t. No evidence of splenic artery aneurysm, given the apparent history of left-sided abdominal bruit. Also no significant renal artery stenosis. 2. Benign-appearing cysts in both kidneys. There are both cortical cysts and multiple bilateral parap elvic cysts. One of the cysts in the left kidney is Bosniak type 2, exhibiting some peripheral calcif ication can be restudy in 1 year. There is no evidence of hydronephrosis. No evidence of hydroureter. 3. Also noted are multiple nonobstructive calculi in the left kidney with average size 3 mm. There a re no calculi in the ureters nor in the nondistended urinary bladder. RADIATION DOSE DELIVERED: Total DLP DATA REPOSITORY: All CT scans at this facility are submitted to the National Radiology Data Registry (NRDR) Dose Index Registry (DIR) with the [employer] (A[employer]). RADIATION OPTIMIZATION: All CT scans at this facility use at least one of these dose optimization te chniques: automated exposure control; mA and/or kV adjustment per patient size (includes targeted exa ms where dose is matched to clinical indication); or iterative reconstruction.
== END ==
PROVIDERS: PCP Family Medicine; Visit Provider Family Medicine
DX: R09.89 Other specified symptoms and signs involving the circulatory and respiratory systems (principal); N28.1 Cyst of kidney, acquired; N20.0 Calculus of kidney
CPT/HCPCS: 36415; 74174; 82565; J3490

== ENCOUNTER → 2024-04-15 11:08 | Outpatient (BNVA) | payer MEDICARE, SELFPAY | PROVIDERS: PCP Family Medicine; Visit Provider Psychiatry & Neurology Neurology | DX: G20.A1 Parkinson's disease without dyskinesia, without mention of fluctuations (principal); R26.9 Unspecified abnormalities of gait and mobility; M48.062 Spinal stenosis, lumbar region with neurogenic claudication; R29.818 Other symptoms and signs involving the nervous system; K59.09 Other constipation | CPT/HCPCS: 99214 ==

== ENCOUNTER → 2024-06-17 11:21 | Outpatient (BNVA) | payer MEDICARE, SELFPAY | PROVIDERS: PCP Family Medicine; Referring Provider Family Medicine; Visit Provider Psychiatry & Neurology Neurology | DX: G20.A1 Parkinson's disease without dyskinesia, without mention of fluctuations (principal); R26.9 Unspecified abnormalities of gait and mobility; R29.818 Other symptoms and signs involving the nervous system; M48.062 Spinal stenosis, lumbar region with neurogenic claudication; K59.09 Other constipation | CPT/HCPCS: 99214 ==

== ENCOUNTER 2024-07-31 14:29 | Outpatient (CLI) | payer MEDICARE, SELFPAY ==
[2024-07-31 13:07] LABS: Anion Gap 5.8 mmol/L (3-11); BUN 21 mg/dL (7-18); CO2 30.2 mmol/L (21.0-32.0); Calcium 9.2 mg/dL (8.5-10.1); Chloride 109 mmol/L (98-107); Glucose 88 mg/dL (74-106); Potassium 4.3 mmol/L (3.5-5.1); Sodium 145 mmol/L (136-145)
== END 2024-07-31 14:30 | disposition home or self-care (01) ==
LOC: LBO 14:35
PROVIDERS: PCP Family Medicine; Visit Provider Family Medicine
DX: I10 Essential (primary) hypertension (principal)
CPT/HCPCS: 36415; 80048

== ENCOUNTER 2024-08-26 16:34 | Outpatient (CLI) | payer MEDICARE, SELFPAY ==
--- NOTE | 2024-08-26 16:00 | DI.RAD_ITS ---
Exam(s) XR CHEST 2V PA LATERAL EXAM: XR CHEST 2V PA LATERAL CLINICAL HISTORY: R05.9 Cough, eval pna. TECHNIQUE: 2D digital imaging was performed. COMPARISON: CR XR CHEST 2V PA LATERAL from 10/01/2021 FINDINGS: 2 views: Heart size is upper normal. The mediastinum is not widened. There is significant infiltrate in the left upper lobe. Slight blunting of left costophrenic angle m ay indicate a small pleural effusion. Right lung is clear. IMPRESSION: Left upper lobe infiltrate DATA REPOSITORY: RADIATION DOSE DELIVERED:
== END 2024-08-26 16:54 ==
LOC: DI 16:35
PROVIDERS: PCP Family Medicine; Visit Provider Nurse Practitioner Family
DX: R91.8 Other nonspecific abnormal finding of lung field (principal)
CPT/HCPCS: 71046

== ENCOUNTER → 2024-11-19 10:57 | Outpatient (BNVA) | payer MEDICARE, SELFPAY | PROVIDERS: PCP Family Medicine; Referring Provider Family Medicine; Visit Provider Psychiatry & Neurology Neurology | DX: G20.A1 Parkinson's disease without dyskinesia, without mention of fluctuations (principal); R26.9 Unspecified abnormalities of gait and mobility; M48.062 Spinal stenosis, lumbar region with neurogenic claudication; R29.818 Other symptoms and signs involving the nervous system; K59.09 Other constipation; I10 Essential (primary) hypertension | CPT/HCPCS: 99214 ==

== ENCOUNTER 2024-12-17 01:31 | Outpatient (CLI) | payer MEDICARE, SELFPAY ==
--- NOTE | 2024-12-17 06:30 | DI.MRI_ITS ---
Exam(s) MR LUMBAR SPINE WO EXAM: MR LUMBAR SPINE WO CLINICAL HISTORY: neurogenic claudication, low back pain, known spinal stenosis,m47.817. TECHNIQUE: Multiplanar multisequence MRI of the Lumbar spine was performed. COMPARISON: MR MR LUMBAR SPINE WO from 12/22/[address] ABDOMEN PELVIS CTA from 02/02/2024 FINDINGS: There is artifact from the patient's posterior spinal surgery. Bones: The last intervertebral disc space is designated the L5/S1 level for the numbering purpose of this examination. Posterior spinal surgery is again seen at L4 and L5. There is again seen grade 1 anterolisthesis of L4 on L5. There is an intervertebral disc device at L4-L5. Cord: The conus tip ends at the T12 level. It is of normal size and signal intensity. T12-L1: No disc herniations or bulges are present. No central spinal canal or neural foraminal stenos is. L1-2: No disc herniations or bulges are present. No central spinal canal or neural foraminal stenosis . L2-3: There is a diffuse disc bulge. This causes mild narrowing of the central spinal canal. There is mild facet arthropathy. There is mild bilateral neural foraminal stenosis. L3-4: There is a diffuse disc bulge. There are degenerative changes of the facets and hypertrophy of the ligamentum flavum. These all contribute to cause marked narrowing of the central spinal canal. There is also marked narrowing of the left neural foramen. No significant right neural foraminal st enosis is seen. L4-5: No disc herniations or bulges are present. There is no significant central spinal canal or left neural foraminal stenosis. There is mild narrowing of the right neural foramen. L5-S1: No disc herniations or bulges are present. No central spinal canal or neural foraminal stenosi s. Soft tissues: The visualized SI joints and sacrum are well maintained. The paraspinal soft tissues ar e unremarkable. Visualized abdominal organs: There are multiple simple renal cysts again seen. No follow-up is recom mended. IMPRESSION: 1. There is artifact from the patient's L4-5 posterior spinal surgery an intervertebral disc device a t L4-L5. 2. Degenerative changes at L3-L4 causing marked central spinal canal stenosis and marked left neural foraminal stenosis. 3. Degenerative changes seen at L2-L3 causing mild narrowing of the central spinal canal and bilatera l neural foraminal narrowing. 4. Stable grade 1 anterolisthesis of L4 on L5. DATA REPOSITORY:
== END 2024-12-17 01:51 ==
LOC: DI 01:31
PROVIDERS: PCP Family Medicine; Visit Provider Family Medicine
DX: R29.818 Other symptoms and signs involving the nervous system (principal); M48.062 Spinal stenosis, lumbar region with neurogenic claudication; M47.817 Spondylosis without myelopathy or radiculopathy, lumbosacral region
CPT/HCPCS: 72148

== ENCOUNTER 2025-01-24 07:05 | Day surgery (SDC) | payer MEDICARE, SELFPAY ==
[2025-01-24 07:29] VITALS: BP 121/78; PULSE 80; RESP 18; TEMP 36.2; O2SAT 96
[2025-01-24] MEDS: Tropicam./Phenyleph. (1/2.5%) 5 ML BTL OS ×3 (07:33→07:43)
--- NOTE | 2025-01-24 07:53 | ANES.PREOP_ITS ---
General Info Date of Service Date Performed: 01/24/25 Height: 5 ft 4 in Weight: 65.2 kg Body Mass Index (BMI): 24.6 Surgical Procedure: Operation Date: 01/24/25 09:40 Proposed Procedure Side Surgeon p Cataract Extraction with IOL Implant Left Petar Piper MD Meds Allergies and Home Medications Allergies Allergy/AdvReac Type Severity Reaction Status Date / Time No Known Allergies Allergy Verified 01/24/25 07:26 Home Medication ?Medication ?Instructions ?Recorded sertraline 50 mg tablet 50 mg PO DAILY 09/03/21 mirtazapine 15 mg tablet 15 mg PO QHS 10/14/22 ketoconazole 2 % topical cream 1 applic topical BID #6 0 grams 05/10/23 carbidopa 25 mg-levodopa 100 mg 1 tab PO TID #270 tabs 04/15/24 tablet losartan 100 mg tablet 100 mg PO DAILY #90 tab-caps 07/31/24 gabapentin 300 mg capsule 300 mg PO BID #180 caps 11/07 10/01 amlodipine 5 mg tablet 5 mg PO HS 01/22/25 Current Visit Medications: Current Medications Generic Name Dose Route Start Last Admin Trade Name Freq PRN Reason Stop Dose Admin Acetaminophen 1,000 mg 01/24/25 06:00 Acetaminophen 500 Mg Tab PO 02/23/25 05:59 Q4H PRN PRN Balanced Salt Solution 500 ml 01/24/25 06:00 Balanced Salt Soln.-Plus 500 Ml Bag OP 02/23/25 05:59 DIRECTED FOR[facility]LY [facility] Miscellaneous Medication 0 ml 01/24/25 06:00 Prednisolone 1%, Moxifloxacin 0.5%, Bromfenac 0.09% 5.6ml Btl OS 02/23/25 05:59 DIRECTED MAG Miscellaneous Medication 0 ml 01/24/25 06:00 01/24/25 07:43 Tropicam./Phenyleph. (1/2.5%) 5 Ml Btl OS 02/23/25 05:59 1 drp DIRECTED MAG Administration Tetracaine HCl 0 ml 01/24/25 06:00 Tetracaine 0.5% 4 Ml Btl OS 02/23/25 05:59 DIRECTED MAG PFSH Active Problems Active Problems: Problem Status Onset Code Posterior subcapsular age-related cataract of left eye Acute H25.042 Nuclear age-related cataract, left eye Acute H25.12 Constipation Chronic K59.00 History of excessive cerumen Acute Z78.9 Abdominal bruit Acute R09.89 Neurogenic claudication Acute R29.818 Parkinson disease Chronic G20.A1 Impacted cerumen, bilateral Acute H61.23 Gait abnormality Acute R26.9 Tingling Acute R20.2 Orthostatic hypotension Acute I95.1 Lumbosacral spondylosis without myelopathy Acute M47.817 Anxiety Chronic 2013 F41.9 Essential hypertension Chronic 05/30/13 I10 GERD (gastroesophageal reflux disease) Chronic K21.9 Hyperlipidemia Chronic 03/25/13 E78.5 Osteopenia determined by x-ray Chronic M85.80 Peripheral polyneuropathy Chronic 12/06/17 G62.9 Spinal stenosis of lumbar region Chronic ~11/2022 M48.061 Essential tremor Acute G25.0 Urinary incontinence without sensory awareness Chronic N39.42 Sensorineural hearing loss (SNHL) of both ears Acute H90.3 Tinnitus, bilateral Chronic H93.13 Onychogryphosis Acute L60.2 Nail dystrophy Acute L60.3 Medical History Medical History Right leg DVT (~03/17/23) planned 3 mos of anticoagulation Polymyalgia rheumatica normal ESR, rheumatology consult with Dr. Wren History of endometrial cancer (~2013) Spondylisthesis Palpitations neg stress echo 04/22 Tinnitus Hx of colonic polyps Osteopenia Migraine Surgical History Surgical History S/P cataract extraction (~12/2022) Status post lumbar spinal arthrodesis (~08/2021) L4-5 Status post breast biopsy Status post laparoscopic hysterectomy Tobacco Smoking/Tobacco Use Status: Never Passive smoking exposure: Yes Second hand exposure: Yes Alcohol Alcohol Intake: current Alcohol intake frequency: a few times a month Alcohol type: beer and wine Substance Use Substance use: Never Substance use type: does not use Vital Signs and Lab Results Vital Signs Most Recent Vital Signs in EMR: Most Recent Vital Signs Temp Pulse Resp BP Pulse Ox 36.2 C L 80 18 121/78 96 01/24/25 07:29 01/24/25 07:29 01/24/25 07:29 01/24/25 07:29 01/24/25 07:29 Imaging and Studies Imaging and Studies Study information below may be from another EMR and interpreted by another provider. Please see original notes in EMR for more complete details. EKG Summary: 07/31: sinus rhy. Carotid Artery Summary:: 05/31: minimal plaque at left common carotid bulb. no hemodynamically sig carotid stenosis. Anesthesia Assessment and Plan Anesthesia History Personal History: No History of Anesthesia Complications Family History: No Family History of Anesthesia Complications Exercise Tolerance Exercise Tolerance: Metabolic Equivalents>4 Pertinent Negatives Pertinent Negatives: No Symptoms of GERD Cardiac & Pulmonary Exam Cardiac Exam: Normal S1/S2 Heart Sounds Pulmonary Exam: Clear Bilateral Breath Sounds Implantable Cardiac Device Does patient have a Pacemaker or an ICD?: No Airway Exam Known Difficult Airway: No Mallampati Class: 3 Mouth Opening: Normal (> 3cm) Thyromental Distance: Greater than 3 cm Neck Range of Motion: Full ROM Neck Circumference: Normal Teeth Condition: Normal Dentition ASA Classification ASA Score: ASA 3 Emergency Case?: No NPO Status NPO Status: NPO Clears >2 hours, Solids >8 hours Anesthesia Plan Resuscitation Status: Full Code Anesthesia Technique: MAC Anesthesia Airway Planned: Natural Airway Monitors Used: Standard Monitors
[2025-01-24 07:54] VITALS: BMI 24.6
[2025-01-24] MEDS: Lidocaine 1% Pres-Free 5 ML VIAL (09:08)
[2025-01-24] MEDS: Duovisc Viscoelastic System EACH 1 EACH (09:08)
[2025-01-24] MEDS: Moxifloxacin-PF 1 MG/ML VIAL (09:09)
[2025-01-24] MEDS: Povidone-Iodine Ophth 30 ML BTL (09:10)
[2025-01-24] MEDS: Phenylephrine/Lidocaine (15/10) MG/ML 1 ML VIAL (09:10)
[2025-01-24] MEDS: Balanced Salt Soln.-PLUS 500 ML BAG OP (09:12)
[2025-01-24] MEDS: Trypan Blue 0.06% 0.5 ML SYR (09:12)
[2025-01-24] MEDS: Tetracaine 0.5% 4 ML BTL OS (09:13)
[2025-01-24] MEDS: Prednisolone 1%, Moxifloxacin 0.5%, Bromfenac 0.09% 5.6ML BTL OS (09:13)
[2025-01-24 09:35] VITALS: BP 131/83; PULSE 81; RESP 16; TEMP 36.4; O2SAT 95
--- NOTE | 2025-01-24 09:36 | W.PM.DSUDISC ---
Date of service: 01/24/25 Discharge Plan Disposition Patient Disposition: Home Discharge Details Attending Provider: Petar Piper Primary Care Provider: Sara Pandey Home Meds and New Rx's Prescriptions: No Action losartan 100 mg tablet 100 mg PO DAILY Qty: 90 3RF carbidopa-levodopa 25-100 mg tablet 1 tab PO TID Qty: 270 3RF Rx Instructions: Take around 8am, 1pm, and 6pm gabapentin 300 mg capsule 300 mg PO BID Qty: 180 3RF mirtazapine 15 mg tablet 15 mg PO QHS Patient Comments: RX. BY DR. LAZARO PLUNKETT sertraline 50 mg tablet 50 mg PO DAILY Patient Comments: TAKE 1 TABLET BY MOUTH EVERY MORNING ketoconazole 2 % cream 1 applic topical BID Qty: 60 1RF amlodipine 5 mg tablet 5 mg PO HS Discharge Instructions Stand Alone Forms: DSU Post-Op Cataract, Hardik Doyle (DSU) Discharge Orders Discharge Orders: Discharge Order (Routine); Ordered 01/24/25 Ordered By: Petar Piper DS: Diagnosis Discharge Diagnosis (1) Posterior subcapsular age-related cataract of left eye: Status: Resolved (2) Nuclear age-related cataract, left eye: Status: Resolved
--- NOTE | 2025-01-24 09:36 | W.PM.OP ---
Operative Note Operative Note PRE-OP DIAGNOSIS: Dense nuclear/posterior subcapsular cataract, left eye Poorly dilating pupil, left eye POST-OP DIAGNOSIS: same PROCEDURE: Cataract extraction by phacoemulsification with intraocular lens implantation, left eye, with pupillary expansion device SURGEON: Petar Piper ANESTHESIA TYPE: Local By Surgeon and MAC Refer to Anesthesia Record ESTIMATED BLOOD LOSS: 0 PATHOLOGY: none sent COMPLICATIONS: None Patient was transported to: same day Patient's condition: stable Implants: Alex and Alex / [employer] Tecnis Eyhance [id number] Indications: Progressive decreased vision, left eye Poorly dilating pupil, left eye. Procedure Description: CATARACT SURGERY OPERATIVE REPORT PREOPERATIVE DIAGNOSIS: 1. Dense nuclear/posterior subcapsular cataract, left eye 2. Poorly dilating pupil, left eye POSTOPERATIVE DIAGNOSIS: Same OPERATION: 1. Cataract extraction using phacoemulsification with posterior chamber intraocular lens implant, left eye. 2. Pupillary dilation and iris stabilization using Malyugin Ring IOL; IOL Night Warehouse Manager/Model: Alex & Alex / JENA Tecnis Eyhance DIB00 IOL Power: + 20.0 diopters IOL Serial Number: [id number] Optic Diameter: 6.0 mm Haptic/Overall Diameter: 13.00 mm PHACO INFO: Get Centurion Vision System with OZil and Active Fluidics Cumulative Dispersed Energy (CDE): 8.52 seconds SURGEON: Petar Piper MD, SANDEEP ANESTHESIA: Monitored Anesthesia Care (MAC), with local sub-tenon's anesthetic infiltration COMPLICATIONS: None SPECIMENS: None INDICATIONS FOR PROCEDURE: The patient is an 84-year-old lady with history of diminished visual acuity in her left eye secondary to the development of a dense nuclear/posterior subcapsular cataract. She also has a very poorly dilating pupil. She repeatedly underwent cataract surgery in the right eye 2 years ago, utilizing pupil expansion device, VisionBlue, and a capsule tension ring. She now presents for cataract extraction with lens implantation of the left eye. See office notes for detailed information. PROCEDURE: The correct surgical eye was identified and marked as the left eye and the pupil was dilated in the preoperative area using mydriatics, cycloplegics, and NSAIDS (except in aspirin allergic patients). The patient elected to proceed without oral sedation. The patient was brought to the operating room where cardiopulmonary monitoring was instituted and surgical time-out was performed, confirming the correct operative eye and IOL power. Topical anesthesia was administered and ophthalmic povidone-iodine 5% was instilled into the conjunctival fornices. The moses-ocular area was prepped with Betadine 10% solution and draped in the usual sterile fashion for intraocular surgery, including an aperture drape. A Tegaderm transparent film dressing was cut in half and used to cover the lashes and lid margins. Care was taken to sequester the lashes and lid margins under the Tegaderm dressing. A lid speculum was placed between the lids of the operative eye and the Michela-Rishi operating microscope was maneuvered into position. Tino scissors were then used to make a conjunctival buttonhole approximately 6mm posterior to the limbus in the inferonasal quadrant. Blunt dissection was carried out to expose bare sclera, and a blunt-tipped sub-tenon?s anesthesia cannula was introduced and passed posteriorly along the globe where non-preserved plain lidocaine was injected into posterior sub-Tenon?s space. A sideport knife was used to make a paracentesis port superiorly/superiortemporally. Intraocular phenylephrine/lidocaine was injected into the anterior chamber. The pupil failed to dilate past 3.5 mm. VisionBlue was injected into the anterior chamber and under the pupillary margin and allowed to sit for 30 seconds. The anterior chamber was then filled with viscoelastic. A keratome knife was used to create a half-thickness groove at the limbus and then to construct a three-plane near-clear corneal tunnel extending 2.0mm into clear cornea at the temporal position. A 6.25 mm Malyugin Ring was then inserted into the pupillary space and engaged with the Kuglen hook. A flap was raised on the anterior capsule and capsulorhexis forceps were used to complete a continuous curvilinear capsulorhexis of 5.0 mm. Balanced salt solution was then used to perform cortical cleaving hydrodissection and nuclear hydrodelineation until the lens could be freely rotated within the capsular bag. The lens nucleus was then disassembled and removed within the capsular bag and iris plane using phacoemulsification. Residual cortical material was removed using the 45-degree angled silicone I/A tip with 0.3mm port. The posterior capsule was carefully polished to remove as much residual lens epithelial cells as safely possible. The capsular bag was then inflated and the anterior chamber deepened with viscoelastic. The lens implant described above was inserted into the capsular bag using the Alex and Alex Simplicity Injector. A Kuglen hook was used to dial the IOL into position. The Malyugin Ring was removed in the reverse order of its insertion. Residual viscoelastic was then removed first from posterior to the IOL, then from the anterior chamber using the I/A handpiece. The lens implant was noted to center nicely within the capsular bag. The incisions were stromally hydrated, and the anterior chamber was reformed using BSS. Then 0.5cc of moxifloxacin 1.0mg/ml were injected into the capsular bag and anterior chamber. The incisions were checked with a Weck spear and found to be secure. Several drops of ophthalmic povidone-iodine 5% were then applied to the eye followed by two drops of Imprimis combination prednisolone/moxifloxacin/nepafenac solution. The drapes were removed and a clear plastic protective eye shield was placed over the eye. The patient was then returned to Same Day Surgery in stable condition. Date of Procedure: 01/24/25
--- NOTE | 2025-01-24 09:49 | W.ANESPOSTOP ---
Postoperative Evaluation Date, Time and Location Date Performed: 01/24/25 Time Performed: 09:50 Patient Location: Day Surgery Unit Vital Signs Most Recent Imported Vital Signs: Most Recent Vital Signs Temp Pulse Resp BP Pulse Ox 36.4 C L 81 16 131/83 95 01/24/25 09:35 01/24/25 09:35 01/24/25 09:35 01/24/25 09:35 01/24/25 09:35 Pain Score Most Recent Pain Score: Most Recent Pain Score Pain Level 0 01/24/25 09:35 Assessment Mental Status: Awake (Alert & Oriented to Patient Baseline) Airway and Respiratory Function: Patent airway with normal (patient baseline) respiratory exam Cardiovascular Function: Hemodynamically Stable Hydration Status: Adequately Hydrated Nausea & Vomiting: No Nausea or Vomiting Pain: Pt. Denies Any Pain Peripheral Nerve Block: Patient did not receive a nerve block
== END 2025-01-24 10:08 | disposition home or self-care (01) ==
LOC: SUR 07:09
PROVIDERS: PCP Family Medicine; Visit Provider Ophthalmology
PROC: (CPT 66982; principal; 2025-01-24 09:30)
DX: H25.042 Posterior subcapsular polar age-related cataract, left eye (principal); H25.12 Age-related nuclear cataract, left eye; Z98.41 Cataract extraction status, right eye
CPT/HCPCS: 66982; 00123; V2632; J2003

== ENCOUNTER 2025-02-06 08:54 | Outpatient (CLI) | payer MEDICARE, SELFPAY ==
[2025-02-06] VITALS (7 sets, daily range): BP systolic 152–179; BP diastolic 78–93; PULSE 70–76; RESP 14–24; TEMP 36.6; O2SAT 96–98
--- NOTE | 2025-02-06 07:45 | DI.RAD_ITS ---
Exam(s) XR PAIN CLINIC LUMBAR SP 2V EXAM: XR PAIN CLINIC LUMBAR SP 2V CLINICAL HISTORY: DX: Lumbar Spondylosis. TECHNIQUE: Fluoroscopy was provided for the referring physician for guidance with performing pain clinic injection procedure. COMPARISON: No exams were available for comparison FINDINGS: Please see procedure note for details. Fluoro time: 40.7 seconds RADIATION DOSE DELIVERED: koki Hancock=8.92 mGy
[2025-02-06] MEDS: Omnipaque 240 MG/ML 50 ML BTL IJ (10:17)
[2025-02-06] MEDS: Nerve Block Tray 1 EACH MC (10:17)
[2025-02-06] MEDS: Bupivacaine 0.5% Pres-Free 10 ML VIAL IJ (10:18)
--- NOTE | 2025-02-06 10:19 | PDOC.PAIN ---
Date of service: 02/06/25 Time of Service: 10:19 Pain Managment Procedure Note Procedure Note Procedure Note: PROCEDURE NOTE Bilateral Lumbar Medial Branch Blocks Date of Service: February 06, 2025 Patient: Staci Bragg Provider: Lien Ledbetter DO, MPH Stacileonel Bragg has been referred to the [facility] for lumbar medial branch blocks. Pre-operative diagnosis: Lumbar Spondylosis without Myelopathy ICD-10 M47.816 Post-operative diagnosis: Same Pre-procedure pain: VAS= 7/10 COMMENTS: I previously evaluated her in the office. Her symptoms are unchanged. She does have L4-L5 fusion. Richi was interviewed and the medical records were reviewed. There were no medical, pharmacologic, radiographic or other structural contraindications to attempting fluoroscopically guided local anesthetic lumbar medial branch blocks. Risks and potential side effects were discussed. I also discussed the potential benefit(s) of the procedure with Staci, and voiced concerns were addressed. After Staci was completely informed about the procedure, the printed consent form was signed. A standard time-out procedure was performed. Staci was placed in the prone position on the fluoroscopy table. Automated blood pressure cuff and pulse oximeter were applied. The skin entry points for approaching the anatomic target points of the segmental medial branches of bilateral L2 and L3 were identified with fluoroscopy and marked. The skin at the target site area was thoroughly prepared with Chlorhexadine. The skin was then draped. Next, a 25 gauge 3.5 spinal needle was placed under fluoroscopic guidance down on to the target point (the articular pillar) for each respective segmental medial branch. Position was confirmed in A/P and lateral views. Aspiration revealed no blood or clear fluid. Next, 0.25ml of omnipaque 240 was injected at each level. No contrast following a vascular or neural pattern was visualized under continuous fluoroscopy. Next, 0.25 ml of preservative-free 0.5% bupivicaine was injected at each level. There was no unusual discomfort expressed by Staci. The needles were withdrawn without difficulty. (49 mls of Omnipaque was wasted) Staci was observed and was without hemodynamic, neurologic, or allergic reactions.? Fluoroscopic images were digitally archived. Provacative testing using the Modified Bee's facet loading test- Left side Right Side Directly before the block VAS (0-10) = 7/10 VAS (0-10) = 7/10 Five minutes after the block VAS (0-10) = 0/10 VAS (0-10) = 0/10 Percentage relief obtained with this diagnostic block 100% 100% Any improved physical functioning directly after the blocks? Able to bend at the waist without difficulty. Follow up plans and appointments were discussed with Staci. Staci was instructed to keep careful note of how the usual pain was modified by these injections. Specifically, to keep a pain diary for the next 4 hours using a numeric pain scale of 0-10 and report these results. Post procedure instruction was given as documented in the nursing documentation and having met discharge criteria, the patient was [facility] from the [facility]. Based on the medial branches blocked today, if they patient has adequate relief and we are able to proceed to radiofrequency ablation, the treatment should result in the denervation of the bilateral L3-L4 facet joints. We would expect to denervate a total of 2 facets during the radiofrequency ablation. COMMENTS: No apparent complications. Post-procedure pain: VAS= 0/10 Staci will call back with 0-4 hour post-procedure pain scores. I personally performed the entire procedure. LIEN LEDBETTER DO, MPH ABPM&R-subspecialty board certification in Pain Medicine [facility] Coding Conscious Sedation used for procedure: No CPT Codes: LMBB (includes Fluoro) Lumbar/Sacral, 2nd lvl - 52875 ([id number] ~G) LMBB (includes Fluoro) Lumbar/Sacral, single lvl *BILATERAL* - [id number] ([id number]~G5) Additional Codes: Date of Service (78854) Date of service: 02/06/25 Diagnoses: Lumbosacral spondylosis without myelopathy
== END 2025-02-06 08:55 | disposition home or self-care (01) ==
LOC: PC 08:55
PROVIDERS: PCP Family Medicine; Visit Provider Preventive Medicine Occupational Medicine
DX: M54.50 Low back pain, unspecified (principal); M47.816 Spondylosis without myelopathy or radiculopathy, lumbar region
CPT/HCPCS: 64493; 64494; 72100; J0665; Q9967

== ENCOUNTER 2025-03-05 14:32 | Outpatient (CLI) | payer MEDICARE, SELFPAY ==
--- NOTE | 2025-03-05 06:00 | DI.RAD_ITS ---
Exam(s) XR PAIN CLINIC LUMBAR SP 2V EXAM: XR PAIN CLINIC LUMBAR SP 2V CLINICAL HISTORY: Dx: Lumbar Spondylosis TECHNIQUE: 2D and realtime digital imaging was performed. Radiologist not present. CONTRAST MATERIAL: None. COMPARISON: No exams were available for comparison FINDINGS: Fluoroscopy was provided for pain management therapy. Lumbar level median branch blocks Please refer to procedure report or details. Radiation Exposure Index: Ka,r=8.08 mGy IMPRESSION: As above. RADIATION DOSE DELIVERED:
[2025-03-05 14:20] VITALS: BP 122/76; PULSE 77; RESP 17; TEMP 36.5; O2SAT 97
[2025-03-05 15:12] VITALS: PULSE 71; PULSE 72; RESP 19; O2SAT 98
[2025-03-05 15:13] VITALS: BP 156/83; PULSE 73; RESP 11; O2SAT 97
[2025-03-05 15:16] VITALS: BP 138/84; PULSE 71; PULSE 78; RESP 11; O2SAT 98
[2025-03-05 15:20] VITALS: PULSE 81; RESP 13; O2SAT 99
--- NOTE | 2025-03-05 15:21 | PDOC.PAIN_ITS ---
Date of service: 03/05/25 Time of Service: 15:22 Pain Managment Procedure Note Procedure Note Procedure Note: PROCEDURE NOTE Bilateral Lumbar Medial Branch Blocks Date of Service: March 05, 2025 Patient: Staci Bragg Provider: Shaggy Ledbetter DO, MPH Staci Bragg has been referred to the [facility] for lumbar medial branch blocks. Pre-operative diagnosis: Lumbar Spondylosis without Myelopathy ICD-10 M47.816 Post-operative diagnosis: Same Pre-procedure pain: VAS= 6/10 COMMENTS: She did well with her first LMBB Staci? was interviewed and the medical records were reviewed. There were no medical, pharmacologic, radiographic or other structural contraindications to attempting fluoroscopically guided local anesthetic lumbar medial branch blocks. Risks and potential side effects were discussed. I also discussed the potential benefit(s) of the procedure with Staci, and voiced concerns were addressed. After Staci was completely informed about the procedure, the printed consent form was signed. A standard time-out procedure was performed. Staci was placed in the prone position on the fluoroscopy table. Automated blood pressure cuff and pulse oximeter were applied. The skin entry points for approaching the anatomic target points of the segmental medial branches of bilateral L2 and L3 were identified with fluoroscopy and marked. The skin at the target site area was thoroughly prepared with Chlorhexadine. The skin was then draped. Next, a 25 gauge 3.5 spinal needle was placed under fluoroscopic guidance down on to the target point (the articular pillar) for each respective segmental medial branch. Position was confirmed in A/P and lateral views. Aspiration revealed no blood or clear fluid. Next, 0.25ml of omnipaque 240 was injected at each level. No contrast following a vascular or neural pattern was visualized under continuous fluoroscopy. Next, 0.25 ml of preservative-free 0.5% bupivicaine was injected at each level. There was no unusual discomfort expressed by Staci. The needles were withdrawn without difficulty. (49 mls of Omnipaque was wasted) Staci was observed and was without hemodynamic, neurologic, or allergic reactions.? Fluoroscopic images were digitally archived. Provacative testing using the Modified Bee's facet loading test- Left side Right Side Directly before the block VAS (0-10) = 6/10 VAS (0-10) = 6/10 Five minutes after the block VAS (0-10) = 0/10 VAS (0-10) = 0/10 Percentage relief obtained with this diagnostic block 100% 100% Any improved physical functioning directly after the blocks? Able to move her low back with ease. Follow up plans and appointments were discussed with Staci. Staci was instructed to keep careful note of how the usual pain was modified by these injections. Specifically, to keep a pain diary for the next 4 hours using a numeric pain scale of 0-10 and report these results. Post procedure instruction was given as documented in the nursing documentation and having met discharge criteria, the patient was discharged from the [facility]. Based on the medial branches blocked today, if they patient has adequate relief and we are able to proceed to radiofrequency ablation, the treatment should result in the denervation of the bilateral L3-L4 facet joints. We would expect to denervate a total of 2 facets during the radiofrequency ablation. COMMENTS: No apparent complications. Post-procedure pain: VAS= 0/10 Staci will call back with 0-4 hour post-procedure pain scores. I personally performed the entire procedure. SHAGGY LEDBETTER DO, MPH ABPM&R-subspecialty board certification in Pain Medicine [facility] Coding Conscious Sedation used for procedure: No CPT Codes: LMBB (includes Fluoro) Lumbar/Sacral, single lvl *BILATERAL* - [id number] ([id number]~G5) Additional Codes: Date of Service (45879) Date of service: 03/05/25 Diagnoses: Lumbosacral spondylosis without myelopathy
[2025-03-05] MEDS: Bupivacaine 0.5% Pres-Free 10 ML VIAL IJ (15:29)
[2025-03-05] MEDS: Omnipaque 240 MG/ML 50 ML BTL IJ (15:29)
[2025-03-05] MEDS: Nerve Block Tray 1 EACH MC (15:29)
== END 2025-03-05 14:33 | disposition home or self-care (01) ==
LOC: PC 14:33
PROVIDERS: PCP Family Medicine; Visit Provider Preventive Medicine Occupational Medicine
DX: M54.50 Low back pain, unspecified (principal); M47.816 Spondylosis without myelopathy or radiculopathy, lumbar region
CPT/HCPCS: 64493; 72100; J0665; Q9967

== ENCOUNTER 2025-03-14 12:12 | Outpatient (CLI) | payer MEDICARE, SELFPAY ==
--- NOTE | 2025-03-14 11:45 | DI.RAD_ITS ---
Exam(s) XR KNEE RT 3V AP,LAT,ZACHERY EXAM: XR KNEE RT 3V AP,LAT,ZACHERY CLINICAL HISTORY: acute right knee pain M25.461 EFFUSION RT KNEE. TECHNIQUE: 2D digital imaging was performed of the right knee. Three views obtained. AP, lateral and PA tunnel views were obtained. COMPARISON: CR XR KNEE RT 3V AP,LAT,ZACHERY from 02/02/2023 FINDINGS: BONES: No acute fracture is present. No bony destructive lesion is seen. JOINTS: There is moderate narrowing of the lateral femoral tibial joint. There osteophytes seen in the medial femoral tibial joint. There is a small joint effusion. SOFT TISSUE: Atherosclerotic calcification is present. IMPRESSION: Mild degenerative changes are seen in the right knee. DATA REPOSITORY: RADIATION DOSE DELIVERED:
== END 2025-03-14 12:32 ==
LOC: DI 12:12
PROVIDERS: PCP Family Medicine; Visit Provider Family Medicine
DX: M25.461 Effusion, right knee (principal)
CPT/HCPCS: 73562

== ENCOUNTER 2025-03-14 15:13 | Outpatient (REF) | payer MEDICARE, SELFPAY ==
[2025-03-18 18:24] LABS: Specimen Source Synovial
== END 2025-03-14 15:14 | disposition home or self-care (01) ==
LOC: LBN 15:13
PROVIDERS: PCP Family Medicine; Visit Provider Family Medicine
DX: M25.461 Effusion, right knee (principal)
CPT/HCPCS: 87476; 87798

== ENCOUNTER → 2025-05-01 10:46 | Outpatient (BNVA) | payer MEDICARE, SELFPAY | PROVIDERS: PCP Family Medicine; Referring Provider Family Medicine; Visit Provider Psychiatry & Neurology Neurology | DX: G20.A1 Parkinson's disease without dyskinesia, without mention of fluctuations (principal); R26.9 Unspecified abnormalities of gait and mobility; M48.062 Spinal stenosis, lumbar region with neurogenic claudication; R29.818 Other symptoms and signs involving the nervous system; K59.09 Other constipation; I10 Essential (primary) hypertension | CPT/HCPCS: 99214 ==